=== PATIENT | male | born 1970 | race African-American/Black ===

== ENCOUNTER 2017-03-19 16:38 | Inpatient (IN) | payer BC ==
[~2017-03-19] VITALS: Ht 193 cm; Wt 90.4 kg
[2017-03-19] VITALS (19 sets, daily range): BP systolic 115–152; BP diastolic 68–112
[2017-03-19] MEDS ORDERED: SODIUM CHLORIDE 0.9% 1000ML 1,000 ML IV STA (17:02)
[2017-03-19 17:26] LABS: BASOPHILS % 0.2 % (0.0-1.0); EOSINOPHILS # (AUTO) 0.1 (0.0-0.4); EOSINOPHILS % 0.3 % (0.0-6.0); HEMATOCRIT 24.4 % (38.2-49.6); HEMOGLOBIN 8.2 g/dL (14.0-18.0); LYMPHOCYTES % 18.3 % (18.0-39.1); MEAN CORPUSCULAR HEMOGLOBIN 27.2 pg (28-32); MEAN CORPUSCULAR HGB CONC 33.6 g/dL (31-35); MEAN CORPUSCULAR VOLUME 81.1 fL (81-99); MONOCYTES % 6.1 % (4.4-11.3); NEUTROPHILS # (AUTO) 12.3 (2.1-6.9); NEUTROPHILS % 74.6 % (38.7-80.0); PLATELET COUNT 648 x10e3/uL (140-360); RED BLOOD COUNT 3.01 x10e6/uL (4.3-5.7)
[2017-03-19 17:41] LABS: ALANINE AMINOTRANSFERASE 50 IU/L (0-55); ALBUMIN 2.3 g/dL (3.5-5.0); ALBUMIN/GLOBULIN RATIO 0.3 (0.8-2.0); ALKALINE PHOSPHATASE 215 IU/L (40-150); ANION GAP 12.3 mmol/L (8-16); BLOOD UREA NITROGEN 14 mg/dL (7-26); BUN/CREATININE RATIO 16 (6-25); CALCIUM 8.7 mg/dL (8.4-10.2); CARBON DIOXIDE 27 mmol/L (22-29); CHLORIDE 98 mmol/L (98-107); CREATININE, SERUM 0.85 mg/dL (0.72-1.25); EST GLOMERULAR FILTRATION RATE > 60 ML/MIN (60-); GLUCOSE 397 mg/dL (74-118); POTASSIUM 4.3 mmol/L (3.5-5.1); SODIUM 133 mmol/L (136-145)
[2017-03-19] MEDS ORDERED: SODIUM CHLORIDE 0.9% 1000ML 1,000 ML IV SCH (18:00)
[2017-03-19] MEDS: CLINDAMYCIN 300MG 50 ML IV SCH (18:06)
[2017-03-19] MEDS ORDERED: INSULIN REGULAR, HUMAN 100 UNITS in SODIUM CHLORIDE 0.45% 100 ML IV PRN ×2 (18:30)
[2017-03-19] MEDS ORDERED: SODIUM CHLORIDE 0.9% 250ML 250 ML ONE (19:36)
[2017-03-19] MEDS: VANCOMYCIN 1GM/NS 250 ML 250 ML IV SCH (20:58)
[2017-03-19] MEDS: SODIUM CHLORIDE 0.9% 1000ML 1,000 ML IV SCH ×2 (20:58→23:42)
[2017-03-19] MEDS: PIPERACILLIN/TAZO 4.5 GM 100 ML IV SCH (22:46)
[2017-03-19] MEDS ORDERED: METOPROLOL TARTRATE INJ 1 MG/ML VIAL IV PRN (23:00)
[2017-03-19] MEDS: METOPROLOL TARTRATE 50 MG TAB PO SCH (23:13)
[2017-03-20] VITALS (94 sets, daily range): BP systolic 88–140; BP diastolic 53–93
[2017-03-20] MEDS ORDERED: ACETAMINOPHEN 1000 MG/100 ML IV SCH
[2017-03-20] MEDS ORDERED: CLINDAMYCIN 300MG 50 ML IV SCH
[2017-03-20] MEDS: ACETAMINOPHEN 1000 MG/100 ML IV PRN ×2 (00:09→22:39)
[2017-03-20] MEDS: CLINDAMYCIN 300MG 50 ML IV SCH ×5 (00:22→23:26)
[2017-03-20] MEDS: PIPERACILLIN/TAZO 4.5 GM 100 ML IV SCH ×4 (05:58→23:48)
--- NOTE | 2017-03-20 07:56 | Progress Note ---
DATE: I was notified by the patient's nurse in the ICU this morning that the patient does not wish any further care by me. He is refusing my recommendations for a left below knee amputation. He has expressed a desire to be evaluated and treated by another surgeon. At this point, I will honor the patient's request that I be no longer the surgeon on his case. Will sign off the case immediately. Job#: [id number] LOCO
[2017-03-20] MEDS: FAMOTIDINE 20 MG TAB PO SCH ×2 (08:45→18:52)
[2017-03-20] MEDS: METOPROLOL TARTRATE 50 MG TAB PO SCH ×2 (08:45→20:06)
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
[2017-03-20 10:59] LABS: BASOPHILS % 0.2 % (0.0-1.0); EOSINOPHILS % 0.1 % (0.0-6.0); LYMPHOCYTES # (AUTO) 2.8 (1.0-3.2); LYMPHOCYTES % 16.9 % (18.0-39.1); MEAN CORPUSCULAR HEMOGLOBIN 27.1 pg (28-32); MEAN CORPUSCULAR HGB CONC 33.8 g/dL (31-35); MEAN CORPUSCULAR VOLUME 80.1 fL (81-99); MONOCYTES # (AUTO) 1.1 (0.2-0.8); MONOCYTES % 6.7 % (4.4-11.3); NEUTROPHILS # (AUTO) 12.4 (2.1-6.9); NEUTROPHILS % 75.6 % (38.7-80.0); PLATELET COUNT 526 x10e3/uL (140-360); RED BLOOD COUNT 2.77 x10e6/uL (4.3-5.7); RED CELL DISTRIBUTION WIDTH 13.9 % (11.7-14.4)
[2017-03-20 11:04] LABS: HEMOGLOBIN 7.5 g/dL (14.0-18.0)
[2017-03-20 11:05] LABS: HEMATOCRIT 22.2 % (38.2-49.6)
[2017-03-20 11:25] LABS: ALANINE AMINOTRANSFERASE 34 IU/L (0-55); ALBUMIN 1.9 g/dL (3.5-5.0); ALBUMIN/GLOBULIN RATIO 0.3 (0.8-2.0); ALKALINE PHOSPHATASE 176 IU/L (40-150); ANION GAP 10.2 mmol/L (8-16); BLOOD UREA NITROGEN 8 mg/dL (7-26); BUN/CREATININE RATIO 12 (6-25); CALCIUM 8.2 mg/dL (8.4-10.2); CARBON DIOXIDE 26 mmol/L (22-29); CHLORIDE 103 mmol/L (98-107); CHOL/HDL RATIO 5.2 (3.9-4.7); CHOLESTEROL 115 MD/DL (0-199); CREATININE, SERUM 0.67 mg/dL (0.72-1.25); EST GLOMERULAR FILTRATION RATE > 60 ML/MIN (60-); GLUCOSE 179 mg/dL (74-118); HDL CHOLESTEROL 22 MG/DL (40-60); LDL CHOLESTEROL 81 MG/DL (60-130); POTASSIUM 4.2 mmol/L (3.5-5.1); SODIUM 135 mmol/L (136-145); TRIGLYCERIDES 61 MG/DL (0-149)
[2017-03-20] MEDS: SODIUM CHLORIDE 0.9% 1000ML 1,000 ML IV SCH ×3 (14:03→23:51)
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
[2017-03-20] MEDS ORDERED: ENOXAPARIN SOD INJ 40 MG/0.4 ML SYR SC SCH (17:00)
[2017-03-20] MEDS ORDERED: SODIUM CHLORIDE 0.9% 250ML 250 ML IV ONE (20:15)
[2017-03-20] MEDS: VANCOMYCIN 1GM/NS 250 ML 250 ML IV SCH (21:10)
[2017-03-21] VITALS (66 sets, daily range): BP systolic 92–146; BP diastolic 56–102
--- NOTE | 2017-03-21 04:46 | Consultation ---
DATE OF CONSULTATION: March 20, 2017 CHIEF COMPLAINT: Left foot infection. HISTORY OF PRESENT ILLNESS: The patient is a 46-year-old male with a history of uncontrolled diabetes presenting with a swollen red foot with drainage and maggots noted in the wound. The patient stated this has started for several months, which has progressively worsened. He admits to some increasing pain and subjective fever and chills. PAST MEDICAL HISTORY: Significant for diabetes, hypertension and hyperlipidemia. SURGICAL HISTORY: Positive for foot surgery years ago. ALLERGIES: THE PATIENT HAS NO DRUG ALLERGIES. SOCIAL HABITS: He denies smoking or alcohol abuse. REVIEW OF SYSTEMS: He has no chest pain or shortness of breath. PHYSICAL EXAMINATION VITALS: Heart rate of 110, temperature 98, blood pressure 120/86. GENERAL: He is awake, alert and in no apparent distress. HEENT: Sclerae nonicteric. NECK: Supple. LUNGS: Clear. HEART: Regular rate and rhythm. No murmur. ABDOMEN: Soft and nontender. EXTREMITIES: Revealed a very edematous and erythematous foot with full-thickness skin necrosis on the dorsum, as well as on the plantar aspect of the foot. There is evidence of maggots in the wound bed. The soft tissue infection and deep abscess formation extends to the proximal aspect of the foot. The foot is warm. Pedal pulse is barely palpable. The process seems to be distal to the ankle level. His white cell count is 16,000, hemoglobin of 7.5 and platelet count is 526,000. Hemoglobin A1C is 8.8. ASSESSMENT: Left Charcot foot with soft tissue infection with possible fasciitis and osteomyelitis. I do not think the foot is salvageable. I concur with previous surgical opinions of below-knee amputation is the best option for this patient for control of sepsis. PLAN: We discussed with patient regarding below-knee amputation, anesthesia and attendant risks discussed with him. Job#: [id number] LOCO
[2017-03-21] MEDS: CLINDAMYCIN 300MG 50 ML IV SCH ×3 (06:01→17:43)
[2017-03-21] MEDS: PIPERACILLIN/TAZO 4.5 GM 100 ML IV SCH ×4 (06:01→23:53)
[2017-03-21] MEDS: FAMOTIDINE 20 MG TAB PO SCH ×2 (07:30→16:30)
--- NOTE | 2017-03-21 08:11 | Progress Note ---
DATE: March 21, 2017 TIME: 6:30 a.m. OVERNIGHT: Patient decided to proceed with surgery. REVIEW OF SYSTEMS: Denies any dizziness, chest pain. PHYSICAL EXAMINATION: VITAL SIGNS: Reviewed. GENERAL APPEARANCE: Tired-appearing man resting in bed. HEENT: Anicteric. CARDIOVASCULAR: Normal S1 and S2. LUNGS: Moderate breath sounds. ABDOMEN: Soft, nontender, nondistended. EXTREMITIES: No edema or calf tenderness on the right leg. On the left foot, he has trace edema. He has erythema and edema of the ankle region extending to the toes. He has necrotic-appearing malodorous large ulcer spreading from the plantar surface to the dorsal surface of the foot. He has pus drainage, extensive lesions. SKIN: Dry. PSYCHIATRIC: Flat affect. NEUROLOGICAL: Alert and oriented x3. Moving all extremities. LABS: Reviewed. MEDICATIONS: Reviewed. ASSESSMENT: A 46-year-old man: 1. Severe sepsis. 2. Necrotic left foot/diabetic foot ulcer. 3. Normocytic anemia, moderate. 4. Uncontrolled diabetes/hyperglycemia. Hemoglobin A1c 8.8, LDL 81, and triglycerides 61. 5. Left foot pain. 6. Hypertension. 7. Hyperlipidemia. PLAN: 1. Surgery planned for today for amputation. 2. Continue broad-spectrum antibiotics vancomycin, Zosyn, and clindamycin. 3. Continue diabetes management per endocrinology. 4. Blood pressure controlled with metoprolol. 5. Continue IV fluids. 6. Will need to consult physiatric, Dr. Walsh after surgery. Critical care time more than 35 minutes. Job#: [id number]
[2017-03-21 09:11] LABS: BASOPHILS % 0.2 % (0.0-1.0); EOSINOPHILS # (AUTO) 0.1 (0.0-0.4); EOSINOPHILS % 0.5 % (0.0-6.0); HEMATOCRIT 23.8 % (38.2-49.6); HEMOGLOBIN 8.1 g/dL (14.0-18.0); LYMPHOCYTES # (AUTO) 2.9 (1.0-3.2); LYMPHOCYTES % 20.2 % (18.0-39.1); MEAN CORPUSCULAR HEMOGLOBIN 27.6 pg (28-32); MEAN CORPUSCULAR VOLUME 81.2 fL (81-99); MONOCYTES # (AUTO) 1.2 (0.2-0.8); MONOCYTES % 8.2 % (4.4-11.3); NEUTROPHILS # (AUTO) 9.9 (2.1-6.9); NEUTROPHILS % 70.5 % (38.7-80.0); PLATELET COUNT 551 x10e3/uL (140-360); RED BLOOD COUNT 2.93 x10e6/uL (4.3-5.7); RED CELL DISTRIBUTION WIDTH 14.2 % (11.7-14.4)
[2017-03-21 09:31] LABS: BLOOD UREA NITROGEN 9 mg/dL (7-26); BUN/CREATININE RATIO 13 (6-25); CALCIUM 8.2 mg/dL (8.4-10.2); CARBON DIOXIDE 27 mmol/L (22-29); CHLORIDE 106 mmol/L (98-107); CREATININE, SERUM 0.69 mg/dL (0.72-1.25); EST GLOMERULAR FILTRATION RATE > 60 ML/MIN (60-); GLUCOSE 80 mg/dL (74-118); SODIUM 138 mmol/L (136-145)
[2017-03-21] MEDS: METOPROLOL TARTRATE 50 MG TAB PO SCH ×2 (09:47→20:09)
[2017-03-21] MEDS: SODIUM CHLORIDE 0.9% 1000ML 1,000 ML IV SCH ×2 (10:05→19:44)
[2017-03-21] MEDS ORDERED: SODIUM CHLORIDE 0.9% 250ML 250 ML ONE (10:55)
[2017-03-21] MEDS ORDERED: FENTANYL CITRATE/PF 100MCG/2 ML INJ ONE ×2 (14:04→16:22)
[2017-03-21] MEDS ORDERED: MIDAZOLAM HCL 2 MG/2 ML VIAL ONE (14:04)
[2017-03-21] MEDS ORDERED: MORPHINE SULFATE 5 MG/ML VIAL IV PRN (16:15)
[2017-03-21] MEDS ORDERED: HYDROCODONE/APAP 7.5MG-325MG 1 EA TAB PO PRN (16:15)
[2017-03-21] MEDS: INSULIN LISPRO 100 UNIT/1 ML 3ML VIAL SQ SCH ×2 (16:30→19:44)
[2017-03-21] MEDS ORDERED: HYDROMORPHONE 1MG/1ML INJ ONE (16:51)
[2017-03-21] MEDS: VANCOMYCIN 1GM/NS 250 ML 250 ML IV SCH (20:09)
[2017-03-21] MEDS ORDERED: HYDROMORPHONE 2MG/ML INJ IV PRN (21:30)
[2017-03-21] MEDS: INSULIN DETEMIR 100 UNIT/ML PEN SQ SCH (21:58)
[2017-03-21] MEDS: HYDROMORPHONE 1MG/1ML INJ IV PRN (23:53)
[2017-03-22] VITALS (95 sets, daily range): BP systolic 98–161; BP diastolic 66–106
[2017-03-22] MEDS: SODIUM CHLORIDE 0.9% 1000ML 1,000 ML IV SCH ×3 (00:58→18:11)
[2017-03-22] MEDS: CLINDAMYCIN 300MG 50 ML IV SCH ×5 (00:58→23:03)
[2017-03-22] MEDS: PIPERACILLIN/TAZO 4.5 GM 100 ML IV SCH ×4 (05:20→23:32)
[2017-03-22] MEDS: HYDROMORPHONE 1MG/1ML INJ IV PRN ×5 (05:25→20:56)
[2017-03-22 06:03] LABS: BASOPHILS % 0.2 % (0.0-1.0); EOSINOPHILS % 0.1 % (0.0-6.0); HEMATOCRIT 24.3 % (38.2-49.6); HEMOGLOBIN 8.2 g/dL (14.0-18.0); LYMPHOCYTES # (AUTO) 2.5 (1.0-3.2); LYMPHOCYTES % 20.2 % (18.0-39.1); MEAN CORPUSCULAR HEMOGLOBIN 27.5 pg (28-32); MEAN CORPUSCULAR HGB CONC 33.7 g/dL (31-35); MEAN CORPUSCULAR VOLUME 81.5 fL (81-99); MONOCYTES # (AUTO) 0.9 (0.2-0.8); MONOCYTES % 7.7 % (4.4-11.3); NEUTROPHILS # (AUTO) 8.7 (2.1-6.9); NEUTROPHILS % 71.1 % (38.7-80.0); PLATELET COUNT 532 x10e3/uL (140-360); RED BLOOD COUNT 2.98 x10e6/uL (4.3-5.7); RED CELL DISTRIBUTION WIDTH 14.2 % (11.7-14.4)
[2017-03-22 06:27] LABS: BLOOD UREA NITROGEN 8 mg/dL (7-26); BUN/CREATININE RATIO 13 (6-25); CALCIUM 7.8 mg/dL (8.4-10.2); CARBON DIOXIDE 25 mmol/L (22-29); CHLORIDE 106 mmol/L (98-107); CREATININE, SERUM 0.63 mg/dL (0.72-1.25); EST GLOMERULAR FILTRATION RATE > 60 ML/MIN (60-); GLUCOSE 101 mg/dL (74-118); SODIUM 136 mmol/L (136-145)
[2017-03-22] MEDS: FAMOTIDINE 20 MG TAB PO SCH ×2 (07:30→16:51)
[2017-03-22] MEDS: INSULIN LISPRO 100 UNIT/1 ML 3ML VIAL SQ SCH ×4 (07:30→20:11)
[2017-03-22] MEDS: METOPROLOL TARTRATE 50 MG TAB PO SCH ×2 (09:00→20:09)
--- NOTE | 2017-03-22 12:35 | Operative Report ---
DATE OF PROCEDURE: March 21, 2017 PREOPERATIVE DIAGNOSIS: Ischemic diabetic left foot. POSTOPERATIVE DIAGNOSIS: Ischemic diabetic left foot. OPERATIVE PROCEDURE: Left below knee amputation. ANESTHESIA: General endotracheal. INDICATIONS: The patient is a 46-year-old male with a history of diabetic foot infection with abscess formation and sepsis. Patient has consented for left below knee amputation due to the foot not being salvageable and risks of worsening sepsis. The attendant risks discussed. DESCRIPTION OF PROCEDURE: The patient was brought to the OR intubated. The left foot is covered with sterile glove, and prepped from the foot to the thigh area with alcohol and draped in a sterile fashion. One handbreadth below the left tibial tuberosity, we then marked a semicircular incision for the initial incisions on the anterior tibia. Dissection was carried straight down to the tibial bone, which was then delineated with sharp dissection on both sides. The anterior tibial muscle is divided with cautery. The anterior tibial neuro-vasculature is controlled with suture ligature with 2-0 silk stitches. The tibial bone is then exposed approximately for 2-3 cm using the periosteal elevator and power saw used to divide the tibial bone. The anterior aspect of the tibial stump was rasped to provide a smooth contour. Laterally, the muscle overlying the tibia was also divided with the cautery. Neurovascular structure singly ligated with suture ligature of 2-0 Vicryl. The fibula was then divided 2 cm proximal to the line of division for the tibia. We then proceeded to follow the plane of the undersurface of the tibia as we created a posterior flap, which is approximally 20 cm long to generate enough posterior flap for coverage of the stump. Dissection was carried through the posterior tibial muscle for approximately 4 cm using cautery. The posterior tibial vasculature and sciatic nerve is singly and individually ligated with 2-0 silk suture ligature. The gastrocnemius and soleus muscle was also likely divided to the skin edge. The specimen was removed. Bleeding points controlled with cautery or suture ligature. We then proceeded to fashion the posterior flap, and brought it over to cover the tibial stump using 0 Vicryl suture interrupted for the fascia. Skin was closed with david. A 15-[place] Med[place] drain has been placed in the muscular tissue adjacent to the tibia and taken out medially. Dressing applied. The patient received a knee immobilizer. He was then extubated and transported to the recovery room in guarded condition. Estimated blood loss 100 mL. Job#: [id number] RI
--- NOTE | 2017-03-22 12:36 | Progress Note ---
DATE: March 22, 2017 TIME: 7:50 a.m. OVERNIGHT: He underwent left BKA. Pain is about 5/10. REVIEW OF SYSTEMS: Denies any dizziness. PHYSICAL EXAMINATION: VITAL SIGNS: Reviewed. GENERAL APPEARANCE: Tired-appearing man resting in bed. HEENT: Anicteric. CARDIOVASCULAR: Normal S1 and S2. LUNGS: Moderate breath sounds. ABDOMEN: Soft, nontender, nondistended. EXTREMITIES: He has left BKA with dry dressing in place with AUTUMN drain in place. Right leg is okay. SKIN: Dry. PSYCHIATRIC: Flat affect. LABS: Reviewed. MEDICATIONS: Reviewed. ASSESSMENT: A 46-year-old man: 1. Severe sepsis. 2. Necrotic left foot/diabetic foot ulcer. 3. Normocytic anemia, moderate. 4. Uncontrolled diabetes/hyperglycemia. Hemoglobin A1c 8.8, LDL 81, and triglycerides 61. 5. Left foot pain. 6. Hypertension. 7. Hyperlipidemia. PLAN: 1. Status post left BKA. 2. Consult Dr. Walsh of rehab services to evaluate patient. 3. Continue broad-spectrum antibiotics. 4. Hemoglobin is 8.2 this morning, which is stable. 5. Leukocytosis. Continues to improve. 6. Glucose is controlled, 103 to 184. 7. All cultures remain negative. Critical care time more than 35 minutes. Job#: [id number]
[2017-03-22] MEDS: VANCOMYCIN 1GM/NS 250 ML 250 ML IV SCH (20:08)
[2017-03-22] MEDS: INSULIN DETEMIR 100 UNIT/ML PEN SQ SCH (20:11)
[2017-03-23] VITALS (35 sets, daily range): BP systolic 102–158; BP diastolic 62–111
[2017-03-23] MEDS: HYDROMORPHONE 1MG/1ML INJ IV PRN ×6 (01:02→22:30)
[2017-03-23] MEDS: SODIUM CHLORIDE 0.9% 1000ML 1,000 ML IV SCH ×3 (02:13→20:34)
[2017-03-23] MEDS: CLINDAMYCIN 300MG 50 ML IV SCH ×4 (05:21→23:19)
[2017-03-23] MEDS: PIPERACILLIN/TAZO 4.5 GM 100 ML IV SCH ×3 (06:09→17:01)
[2017-03-23] MEDS: FAMOTIDINE 20 MG TAB PO SCH ×2 (07:43→16:54)
[2017-03-23] MEDS: INSULIN LISPRO 100 UNIT/1 ML 3ML VIAL SQ SCH ×4 (07:45→21:02)
[2017-03-23] MEDS: METOPROLOL TARTRATE 50 MG TAB PO SCH ×2 (08:25→20:35)
[2017-03-23 13:04] LABS: HEMATOCRIT 25.2 % (38.2-49.6); HEMOGLOBIN 8.4 g/dL (14.0-18.0)
--- NOTE | 2017-03-23 15:07 | Progress Note ---
DATE: March 23, 2017 TIME: 11:50 a.m. OVERNIGHT: No events. Pain is controlled, about 2/10. REVIEW OF SYSTEMS: Denies any dizziness or chest pain. VITAL SIGNS: Reviewed. PHYSICAL EXAMINATION GENERAL: Tired-appearing man resting in bed. HEENT: Anicteric. CARDIOVASCULAR: Normal S1 and S2. LUNGS: Moderate breath sounds. ABDOMEN: Soft, nontender, nondistended. EXTREMITIES: Left leg has BKA with dressing in place with AUTUMN drain. SKIN: Dry. PSYCHIATRIC: Normal affect. LABS: Reviewed. MEDICATIONS: Reviewed. ASSESSMENT: This is a 46-year-old man. 1. Severe sepsis. 2. Necrotic left foot/diabetic foot ulcer, status post below-knee amputation. 3. Normocytic anemia, moderate. 4. Uncontrolled diabetes/hyperglycemia. Glycosylated hemoglobin 8.8, low-density lipoprotein 81, and triglycerides 61. 5. Left foot pain. 6. Hypertension. 7. Hyperlipidemia. PLAN 1. Continue physical therapy. Rehab services consulted. 2. Recheck CBC now. 3. All cultures remain negative. 4. Transfer to the floor. Job#: [id number]
[2017-03-23] MEDS: VANCOMYCIN 1GM/NS 250 ML 250 ML IV SCH (20:35)
[2017-03-23] MEDS: INSULIN DETEMIR 100 UNIT/ML PEN SQ SCH (21:02)
[2017-03-24] VITALS: BP 124/61
[2017-03-24] MEDS: SODIUM CHLORIDE 0.9% 1000ML 1,000 ML IV SCH ×3 (02:30→18:43)
[2017-03-24 04:00] VITALS: BP 129/82
[2017-03-24] MEDS: HYDROMORPHONE 1MG/1ML INJ IV PRN ×5 (04:21→23:34)
[2017-03-24] MEDS: PIPERACILLIN/TAZO 4.5 GM 100 ML IV SCH ×5 (05:17→23:31)
[2017-03-24] MEDS: CLINDAMYCIN 300MG 50 ML IV SCH ×3 (05:52→18:43)
[2017-03-24 07:09] VITALS: BP 142/84
[2017-03-24] MEDS: METOPROLOL TARTRATE 50 MG TAB PO SCH ×2 (08:26→20:34)
[2017-03-24] MEDS: INSULIN LISPRO 100 UNIT/1 ML 3ML VIAL SQ SCH ×4 (08:26→20:35)
[2017-03-24] MEDS: FAMOTIDINE 20 MG TAB PO SCH ×2 (08:26→16:24)
--- NOTE | 2017-03-24 08:48 | Consultation ---
DATE OF CONSULTATION: March 23, 2017 REFERRING PHYSICIAN: Dr. Konstantin Vasquez. I would like to thank Dr. Vasquez for asking me to see Mr. York in consultation. REASONS FOR CONSULTATION: Left below-knee amputation secondary to gangrene. HISTORY: Mr. York is a 46-year-old male with a history of uncontrolled diabetes, who came into the hospital with a red, swollen foot with drainage and maggots noted in the wound. The patient says that he had it for several months. It had gotten worse. It was felt that the leg was not salvageable, so he underwent a below-knee amputation on the left. I am being asked to evaluate for rehab needs. PAST MEDICAL HISTORY: Diabetes, hypertension, hyperlipidemia. SURGERIES: Positive for foot surgery. ALLERGIES: NO KNOWN DRUG ALLERGIES. HABITS: Nonsmoker, nondrinker. SOCIAL HISTORY: He lives by himself in a 1-story home. 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 FAMILY HISTORY: Denies. CONSTITUTIONAL REVIEW OF SYSTEMS: Essentially negative except for the above findings. The patient is denying any numbness or tingling in the legs. He says he has had diabetes for the past 10 years. LABS: White cell count 12.2, hemoglobin 8.4, hematocrit 25.2, platelets 532. Therapies have not been initiated just yet. PHYSICAL EXAMINATION VITALS: Temperature 98.7, respirations 16, heart rate 86, blood pressure 131/82. GENERAL: The patient is awake, alert, pleasant, in no apparent distress at this time. HEENT: Eyes: Gaze is conjugate. Oral: Tongue is midline. NECK: Supple. HEART: Regular. LUNGS: Clear throughout. ABDOMEN: Nontender and nondistended. EXTREMITIES: Left leg: He has a large dressing and knee immobilizer on. There is a AUTUMN drain in the left stump. He has full range of motion of the arms as well as his right leg. He actually flexes his left hip pretty well. He does have phantom sensation. Manual muscle testing showed flexion and extension 4/5 strength bilaterally. Infant Room Teacher is 5/5 strength bilaterally. The right lower extremity demonstrates pretty much 4/5 to 4+/5 strength throughout. In the left lower extremity, hip flexion was 4-/5 strength. His knee is in the immobilizer. IMPRESSION 1. Left below-knee amputation secondary to gangrenous foot. 2. Patient with phantom sensation. 3. Diabetes. 4. Hypertension. 5. Hyperlipidemia. PLAN: I spoke with the patient at length. He will make an excellent inpatient rehab candidate. He would benefit from a multidisciplinary inpatient rehab program consisting of PT, OT, and nursing working in a coordinated fashion to optimize functional level. He definitely wants to go back to work. In order to do so, his leg has to be healed so he can be evaluated for a prosthesis. I discussed with the patient about plan of care. Will check with the insurance. Thank you, once again, for allowing me to participate in the care of this pleasant patient. Job#: [id number]
[2017-03-24 11:25] VITALS: BP 109/75
--- NOTE | 2017-03-24 11:28 | Progress Note ---
DATE: March 24, 2017 TIME: 8 a.m. OVERNIGHT: No events. Pain is well controlled. REVIEW OF SYSTEMS: Denies any dizziness or chest pain. VITAL SIGNS: Reviewed. PHYSICAL EXAMINATION GENERAL: Tired-appearing man resting in bed. HEENT: Anicteric. CARDIOVASCULAR: Normal S1 and S2. LUNGS: Moderate breath sounds. ABDOMEN: Soft, nontender, nondistended. EXTREMITIES: Left BKA with dressing in place and AUTUMN drain. SKIN: Dry. PSYCHIATRIC: Normal affect. LABS: Reviewed. MEDICATIONS: Reviewed. ASSESSMENT: This is a 46-year-old man. 1. Severe sepsis. 2. Necrotic left foot/diabetic foot ulcer, status post below-knee amputation. 3. Normocytic anemia, moderate. 4. Uncontrolled diabetes/hyperglycemia. Glycosylated hemoglobin 8.8, low-density lipoprotein 81, and triglycerides 61. 5. Left foot pain. 6. Hypertension. 7. Hyperlipidemia. PLAN 1. Continue physical therapy. 2. Continue local wound care. 3. May benefit from rehab services. 4. All cultures remain negative. 5. Hemoglobin is remaining stable at 8.4 yesterday. 6. Obtain labs tomorrow morning. 7. Glucose is somewhat controlled. Titrate insulin regimen up. Ensure the patient is on a diabetic diet. 8. Discharge planning. Job#: [id number]
--- NOTE | 2017-03-24 12:18 | Progress Note ---
DATE: March 24, 2017 Mr. York was seen on rounds today. He had a pretty good night last night. No complaints at this time, except for the pain. OBJECTIVE VITALS: Temperature 97.9, respirations 18, heart rate 95, blood pressure 129/82. GENERAL: Overall, he is doing fairly well. HEART: Regular. LUNGS: Clear. ABDOMEN: Nontender. Nondistended. EXTREMITIES: Right leg looks good. No increased swelling. Left leg in immobilizer. PLAN 1. Continue to work on mobility. 2. Pain medicines 1/2 hour before therapy. 3. Work on transfer to inpatient rehab, given his new BKA. Job#: [id number]
[2017-03-24 15:30] VITALS: BP 129/78
[2017-03-24] MEDS: VANCOMYCIN 1GM/NS 250 ML 250 ML IV SCH (19:53)
[2017-03-24 20:00] VITALS: BP 125/76
[2017-03-24] MEDS ORDERED: INSULIN DETEMIR 100 UNIT/ML PEN SQ SCH ×2 (21:00)
[2017-03-25] VITALS: BP 118/65
[2017-03-25] MEDS: CLINDAMYCIN 300MG 50 ML IV SCH ×4 (00:11→18:43)
[2017-03-25] MEDS: SODIUM CHLORIDE 0.9% 1000ML 1,000 ML IV SCH ×3 (02:51→16:51)
[2017-03-25 04:00] VITALS: BP 125/75
[2017-03-25] MEDS: HYDROMORPHONE 1MG/1ML INJ IV PRN ×4 (05:18→23:25)
[2017-03-25] MEDS: PIPERACILLIN/TAZO 4.5 GM 100 ML IV SCH ×3 (05:25→23:10)
--- NOTE | 2017-03-25 06:59 | Progress Note ---
DATE: March 25, 2017 TIME: 6 a.m. OVERNIGHT: Pain is about 5/10. REVIEW OF SYSTEMS: Denies any dizziness. PHYSICAL EXAMINATION VITAL SIGNS: Reviewed. GENERAL: A tired-appearing man resting in bed. HEENT: Anicteric. CARDIOVASCULAR: Normal S1 and S2. LUNGS: Moderate breath sounds. ABDOMEN: Soft, nontender and nondistended. EXTREMITIES: Left BKA with dressing in place, clean and dry. SKIN: Dry. PSYCHIATRIC: Normal affect. LABS: Reviewed. MEDICATIONS: Reviewed. ASSESSMENT: A 46-year-old man with: 1. Severe sepsis. 2. Necrotic left foot/diabetic foot ulcer: Status post below knee amputation. 3. Normocytic anemia, moderate. 4. Uncontrolled diabetes/hyperglycemia: Hemoglobin A1c 8.8, LDL 81 and triglycerides 61. 5. Left foot pain. 6. Hypertension. 7. Hyperlipidemia. PLAN 1. Continue physical therapy. 2. Continue local wound care. 3. Continue glucose control. 4. Check H and H. 5. Titrate Levemir up to 16 units. 6. Continue IV clindamycin, IV Zosyn and IV vancomycin. 7. Rehab evaluation ongoing. Follow up with case management. Job#: [id number] LOCO
[2017-03-25 07:16] LABS: BASOPHILS % 0.2 % (0.0-1.0); EOSINOPHILS # (AUTO) 0.1 (0.0-0.4); EOSINOPHILS % 1.4 % (0.0-6.0); HEMATOCRIT 22.8 % (38.2-49.6); HEMOGLOBIN 7.7 g/dL (14.0-18.0); LYMPHOCYTES # (AUTO) 3.4 (1.0-3.2); LYMPHOCYTES % 35.6 % (18.0-39.1); MEAN CORPUSCULAR HEMOGLOBIN 27.9 pg (28-32); MEAN CORPUSCULAR HGB CONC 33.8 g/dL (31-35); MEAN CORPUSCULAR VOLUME 82.6 fL (81-99); MONOCYTES % 10.3 % (4.4-11.3); NEUTROPHILS % 51.9 % (38.7-80.0); PLATELET COUNT 614 x10e3/uL (140-360); RED BLOOD COUNT 2.76 x10e6/uL (4.3-5.7); RED CELL DISTRIBUTION WIDTH 14.7 % (11.7-14.4)
[2017-03-25 07:44] LABS: ANION GAP 9.8 mmol/L (8-16); BLOOD UREA NITROGEN < 5 mg/dL (7-26); CALCIUM 8.4 mg/dL (8.4-10.2); CARBON DIOXIDE 29 mmol/L (22-29); CHLORIDE 102 mmol/L (98-107); CREATININE, SERUM 0.66 mg/dL (0.72-1.25); EST GLOMERULAR FILTRATION RATE > 60 ML/MIN (60-); GLUCOSE 158 mg/dL (74-118); MAGNESIUM 1.2 MG/DL (1.3-2.1); POTASSIUM 3.8 mmol/L (3.5-5.1); SODIUM 137 mmol/L (136-145)
[2017-03-25 07:50] LABS: BUN/CREATININE RATIO 8 (6-25)
[2017-03-25 08:00] VITALS: BP 137/83
[2017-03-25] MEDS: INSULIN LISPRO 100 UNIT/1 ML 3ML VIAL SQ SCH ×7 (08:30→21:00)
[2017-03-25] MEDS: FAMOTIDINE 20 MG TAB PO SCH ×2 (08:30→16:45)
[2017-03-25] MEDS: METOPROLOL TARTRATE 50 MG TAB PO SCH ×2 (09:00→21:31)
[2017-03-25 12:00] VITALS: BP 131/84
[2017-03-25] MEDS ORDERED: MAGNESIUM SULFATE 2GM/50ML 50 ML IV ONE (12:30)
[2017-03-25 16:00] VITALS: BP 119/80
[2017-03-25 20:00] VITALS: BP 123/78
[2017-03-25] MEDS: INSULIN DETEMIR 100 UNIT/ML PEN SQ SCH (21:27)
[2017-03-25] MEDS: VANCOMYCIN 1GM/NS 250 ML 250 ML IV SCH (21:50)
[2017-03-26] VITALS: BP 127/74
[2017-03-26] MEDS: CLINDAMYCIN 300MG 50 ML IV SCH ×4 (00:39→17:48)
[2017-03-26] MEDS: PIPERACILLIN/TAZO 4.5 GM 100 ML IV SCH ×4 (02:21→23:25)
[2017-03-26] MEDS: SODIUM CHLORIDE 0.9% 1000ML 1,000 ML IV SCH ×3 (02:21→17:48)
[2017-03-26] MEDS: HYDROMORPHONE 1MG/1ML INJ IV PRN ×4 (03:23→21:54)
[2017-03-26 04:00] VITALS: BP 120/76
[2017-03-26 07:11] LABS: BASOPHILS % 0.3 % (0.0-1.0); EOSINOPHILS # (AUTO) 0.1 (0.0-0.4); EOSINOPHILS % 1.2 % (0.0-6.0); HEMATOCRIT 23.9 % (38.2-49.6); LYMPHOCYTES # (AUTO) 3.4 (1.0-3.2); LYMPHOCYTES % 37.3 % (18.0-39.1); MEAN CORPUSCULAR HEMOGLOBIN 27.6 pg (28-32); MEAN CORPUSCULAR HGB CONC 33.1 g/dL (31-35); MEAN CORPUSCULAR VOLUME 83.6 fL (81-99); MONOCYTES # (AUTO) 0.8 (0.2-0.8); MONOCYTES % 9.1 % (4.4-11.3); NEUTROPHILS # (AUTO) 4.7 (2.1-6.9); NEUTROPHILS % 51.7 % (38.7-80.0); PLATELET COUNT 487 x10e3/uL (140-360); RED BLOOD COUNT 2.86 x10e6/uL (4.3-5.7); RED CELL DISTRIBUTION WIDTH 15.1 % (11.7-14.4)
[2017-03-26 07:14] LABS: HEMOGLOBIN 7.9 g/dL (14.0-18.0)
[2017-03-26] MEDS: INSULIN LISPRO 100 UNIT/1 ML 3ML VIAL SQ SCH ×7 (07:30→21:38)
[2017-03-26] MEDS: FAMOTIDINE 20 MG TAB PO SCH ×2 (07:30→16:30)
[2017-03-26 07:44] VITALS: BP 131/83
[2017-03-26] MEDS: METOPROLOL TARTRATE 50 MG TAB PO SCH ×2 (09:38→21:27)
[2017-03-26 11:42] VITALS: BP 127/77
[2017-03-26 16:03] VITALS: BP 128/73
[2017-03-26 20:00] VITALS: BP 127/78
[2017-03-26] MEDS: VANCOMYCIN 1GM/NS 250 ML 250 ML IV SCH (21:27)
[2017-03-26] MEDS: INSULIN DETEMIR 100 UNIT/ML PEN SQ SCH (21:39)
[2017-03-27] MEDS: CLINDAMYCIN 300MG 50 ML IV SCH ×5 (00:49→23:40)
[2017-03-27 02:21] VITALS: BP 138/84
[2017-03-27] MEDS: HYDROMORPHONE 1MG/1ML INJ IV PRN ×4 (02:41→23:51)
[2017-03-27] MEDS: PIPERACILLIN/TAZO 4.5 GM 100 ML IV SCH ×4 (03:03→20:45)
[2017-03-27] MEDS: SODIUM CHLORIDE 0.9% 1000ML 1,000 ML IV SCH ×3 (03:03→18:05)
[2017-03-27 05:58] VITALS: BP 121/76
[2017-03-27 07:07] VITALS: BP 133/85
[2017-03-27] MEDS ORDERED: FUROSEMIDE INJ 10 MG/ML 2 ML VIAL IV ONE (07:30)
--- NOTE | 2017-03-27 07:59 | Progress Note ---
DATE: March 26, 2017 TIME: 6:50 a.m. OVERNIGHT: No events. REVIEW OF SYSTEMS: Denies any dizziness or chest pain. PHYSICAL EXAMINATION VITAL SIGNS: Reviewed. GENERAL: A tired-appearing man resting in bed. HEENT: Anicteric. CARDIOVASCULAR: Normal S1 and S2. LUNGS: Moderate breath sounds. ABDOMEN: Soft and nontender. EXTREMITIES: Left BKA with dressing clean and dry. SKIN: Dry. PSYCHIATRIC: Normal affect. LABS: Reviewed. MEDICATIONS: Reviewed. ASSESSMENT: A 46-year-old man with: 1. Severe sepsis. 2. Necrotic left foot/diabetic foot ulcer: Status post below knee amputation. 3. Normocytic anemia: Moderate. 4. Uncontrolled diabetes/hyperglycemia: Hemoglobin A1c 8.8, LDL 81 and triglycerides 61. 5. Left foot pain. 6. Hypertension/hyperlipidemia. PLAN 1. Continue physical therapy. 2. Continue local wound care. 3. Continue glucose management. 4. Titrate medications. 5. Continue antibiotics. 6. Follow up rehab evaluation. Job#: [id number] NM
--- NOTE | 2017-03-27 08:03 | Progress Note ---
DATE: March 27, 2017 TIME: 7:15 a.m. OVERNIGHT: No events. REVIEW OF SYSTEMS: Denies any dizziness. PHYSICAL EXAMINATION VITAL SIGNS: Reviewed. GENERAL: A tired-appearing man resting in bed. HEENT: Anicteric. CARDIOVASCULAR: Normal S1 and S2. LUNGS: Moderate breath sounds. ABDOMEN: Soft and nontender. EXTREMITIES: Right leg with no edema. On the left leg, he has a left BKA. He has edema of the stump site. SKIN: Dry. PSYCHIATRIC: Normal affect. LABS: Reviewed. MEDICATIONS: Reviewed. ASSESSMENT: A 46-year-old man with: 1. Severe sepsis. 2. Necrotic left foot/diabetic foot ulcer: Status post below knee amputation. 3. Normocytic anemia: Moderate. 4. Diabetes mellitus: Hemoglobin A1c 8.8, LDL 81 and triglycerides 61. 5. Left foot pain. 6. Hypertension/hyperlipidemia. 7. Left foot stump site edema. PLAN 1. Continue physical therapy. 2. Continue local wound care. 3. Continue glucose management. 4. Recheck CBC to evaluate H and H. 5. Gentle diuresis as the left foot stump site is edematous. 6. Obtain labs. 7. Obtain vancomycin trough. All cultures remain negative. Job#: [id number] LOCO
[2017-03-27 08:08] LABS: ANION GAP 8.4 mmol/L (8-16); BLOOD UREA NITROGEN 5 mg/dL (7-26); BUN/CREATININE RATIO 7 (6-25); CALCIUM 8.7 mg/dL (8.4-10.2); CARBON DIOXIDE 28 mmol/L (22-29); CHLORIDE 103 mmol/L (98-107); CREATININE, SERUM 0.68 mg/dL (0.72-1.25); EST GLOMERULAR FILTRATION RATE > 60 ML/MIN (60-); GLUCOSE 280 mg/dL (74-118); POTASSIUM 4.4 mmol/L (3.5-5.1); SODIUM 135 mmol/L (136-145)
[2017-03-27] MEDS: INSULIN LISPRO 100 UNIT/1 ML 3ML VIAL SQ SCH ×7 (08:29→21:00)
[2017-03-27] MEDS: FAMOTIDINE 20 MG TAB PO SCH ×2 (08:29→16:40)
[2017-03-27] MEDS: METOPROLOL TARTRATE 50 MG TAB PO SCH ×2 (08:30→21:45)
[2017-03-27 11:54] VITALS: BP 131/79
[2017-03-27 16:37] VITALS: BP 120/69
[2017-03-27 20:00] VITALS: BP 122/73
[2017-03-27] MEDS: INSULIN DETEMIR 100 UNIT/ML PEN SQ SCH (21:00)
[2017-03-28] VITALS (8 sets, daily range): BP systolic 98–179; BP diastolic 59–83
[2017-03-28] MEDS: SODIUM CHLORIDE 0.9% 1000ML 1,000 ML IV SCH ×3 (02:05→18:05)
[2017-03-28] MEDS: PIPERACILLIN/TAZO 4.5 GM 100 ML IV SCH ×4 (02:50→20:15)
[2017-03-28] MEDS: CLINDAMYCIN 300MG 50 ML IV SCH ×4 (05:17→23:51)
[2017-03-28] MEDS: HYDROMORPHONE 1MG/1ML INJ IV PRN ×3 (05:30→18:32)
[2017-03-28 06:54] LABS: BASOPHILS % 0.4 % (0.0-1.0); EOSINOPHILS # (AUTO) 0.1 (0.0-0.4); EOSINOPHILS % 1.3 % (0.0-6.0); HEMATOCRIT 25.8 % (38.2-49.6); HEMOGLOBIN 8.3 g/dL (14.0-18.0); LYMPHOCYTES # (AUTO) 2.9 (1.0-3.2); LYMPHOCYTES % 37.6 % (18.0-39.1); MEAN CORPUSCULAR HEMOGLOBIN 26.9 pg (28-32); MEAN CORPUSCULAR HGB CONC 32.2 g/dL (31-35); MEAN CORPUSCULAR VOLUME 83.8 fL (81-99); MONOCYTES # (AUTO) 0.7 (0.2-0.8); MONOCYTES % 9.6 % (4.4-11.3); NEUTROPHILS # (AUTO) 3.9 (2.1-6.9); NEUTROPHILS % 50.8 % (38.7-80.0); PLATELET COUNT 458 x10e3/uL (140-360); RED BLOOD COUNT 3.08 x10e6/uL (4.3-5.7); RED CELL DISTRIBUTION WIDTH 15.3 % (11.7-14.4)
--- NOTE | 2017-03-28 07:03 | Progress Note ---
DATE: March 28, 2017 TIME: 6:45 a.m. OVERNIGHT: Patient denied placement to acute rehab by insurance. REVIEW OF SYSTEMS: Denies any chest pain. PHYSICAL EXAMINATION VITAL SIGNS: Reviewed. GENERAL: A tired-appearing man resting in bed. HEENT: Anicteric. Pupils respond to light. No oral lesions. CARDIOVASCULAR: Normal S1 and S2. LUNGS: Moderate breath sounds. ABDOMEN: Soft, nontender and nondistended. EXTREMITIES: He has a left BKA. No edema or calf tenderness. SKIN: Dry. PSYCHIATRIC: Normal affect. LABS: Reviewed. MEDICATIONS: Reviewed. ASSESSMENT: A 46-year-old man with: 1. Severe sepsis. 2. Necrotic left foot/diabetic foot ulcer: Status post below knee amputation. 3. Normocytic anemia, moderate. 4. Diabetes mellitus, type 2: Hemoglobin A1c 8.8, LDL 81 and triglycerides 61. 5. Left foot pain. 6. Hypertension/hyperlipidemia. 7. Foot stump site edema. PLAN 1. Continue physical therapy. 2. Awaiting appeal with insurance company. 3. Continue glucose management. 4. Continue gentle diuresis. 5. Obtain CBC this morning to assess the H and H. 6. May need SNF placement if not approved for acute rehab. 7. Continue IV antibiotics. Job#: [id number] LOCO
[2017-03-28] MEDS: INSULIN LISPRO 100 UNIT/1 ML 3ML VIAL SQ SCH ×7 (08:23→20:07)
[2017-03-28] MEDS: FAMOTIDINE 20 MG TAB PO SCH ×2 (08:23→17:33)
[2017-03-28] MEDS: METOPROLOL TARTRATE 50 MG TAB PO SCH ×2 (08:24→20:31)
[2017-03-28] MEDS: INSULIN DETEMIR 100 UNIT/ML PEN SQ SCH (20:15)
[2017-03-29] MEDS: PIPERACILLIN/TAZO 4.5 GM 100 ML IV SCH ×4 (01:58→20:15)
[2017-03-29] MEDS: SODIUM CHLORIDE 0.9% 1000ML 1,000 ML IV SCH ×3 (02:05→18:05)
[2017-03-29 05:00] VITALS: BP 107/69
[2017-03-29] MEDS: CLINDAMYCIN 300MG 50 ML IV SCH ×2 (05:33→12:37)
[2017-03-29] MEDS: HYDROMORPHONE 1MG/1ML INJ IV PRN ×3 (05:37→18:42)
[2017-03-29 07:28] LABS: BASOPHILS % 0.4 % (0.0-1.0); EOSINOPHILS # (AUTO) 0.1 (0.0-0.4); EOSINOPHILS % 1.6 % (0.0-6.0); HEMATOCRIT 26.1 % (38.2-49.6); HEMOGLOBIN 8.5 g/dL (14.0-18.0); LYMPHOCYTES # (AUTO) 3.4 (1.0-3.2); LYMPHOCYTES % 44.8 % (18.0-39.1); MEAN CORPUSCULAR HEMOGLOBIN 27.2 pg (28-32); MEAN CORPUSCULAR HGB CONC 32.6 g/dL (31-35); MEAN CORPUSCULAR VOLUME 83.4 fL (81-99); MONOCYTES # (AUTO) 0.7 (0.2-0.8); NEUTROPHILS # (AUTO) 3.4 (2.1-6.9); NEUTROPHILS % 43.8 % (38.7-80.0); PLATELET COUNT 481 x10e3/uL (140-360); RED BLOOD COUNT 3.13 x10e6/uL (4.3-5.7); RED CELL DISTRIBUTION WIDTH 15.2 % (11.7-14.4)
[2017-03-29] MEDS: INSULIN LISPRO 100 UNIT/1 ML 3ML VIAL SQ SCH ×7 (07:30→19:34)
--- NOTE | 2017-03-29 07:30 | Progress Note ---
DATE: March 29, 2017 TIME: 7:06 a.m. OVERNIGHT: No events. REVIEW OF SYSTEMS: Denies any dizziness. PHYSICAL EXAMINATION VITAL SIGNS: Reviewed. GENERAL: A tired-appearing man resting in bed. HEENT: Anicteric. CARDIOVASCULAR: Normal S1 and S2. LUNGS: Moderate breath sounds. ABDOMEN: Soft, nontender and nondistended. EXTREMITIES: Left BKA. SKIN: Dry. PSYCHIATRIC: Normal affect. LABS: Reviewed. MEDICATIONS: Reviewed. ASSESSMENT: A 46-year-old man with: 1. Severe sepsis. 2. Necrotic left foot/foot ulcer: Status post below knee amputation. 3. Normocytic anemia, moderate. 4. Diabetes mellitus, type 2: Hemoglobin A1c 8.8, LDL 81 and triglycerides 61. 5. Left foot pain. 6. Hypertension/hyperlipidemia. 7. Foot stump site edema. PLAN 1. Continue physical therapy. 2. SNF evaluation with plan for rehab when he is ready to place prosthesis. 3. Glucose management. 4. Hemoglobin continues to improve on its own. Yesterday, was 8.3. Will obtain H and H today. 5. Continue Zosyn and clindamycin. Job#: [id number] SD
[2017-03-29 07:58] VITALS: BP 119/63
[2017-03-29] MEDS: FAMOTIDINE 20 MG TAB PO SCH ×2 (09:00→17:30)
[2017-03-29] MEDS: METOPROLOL TARTRATE 50 MG TAB PO SCH ×2 (09:00→20:15)
[2017-03-29 12:00] VITALS: BP 118/69
[2017-03-29 15:45] VITALS: BP 134/64
[2017-03-29 19:47] VITALS: BP 119/69
[2017-03-29] MEDS: INSULIN DETEMIR 100 UNIT/ML PEN SQ SCH (20:15)
[2017-03-30] VITALS (7 sets, daily range): BP systolic 107–129; BP diastolic 58–82
[2017-03-30] MEDS: PIPERACILLIN/TAZO 4.5 GM 100 ML IV SCH ×4 (01:40→20:36)
[2017-03-30] MEDS: HYDROMORPHONE 1MG/1ML INJ IV PRN ×4 (01:50→20:36)
[2017-03-30] MEDS: SODIUM CHLORIDE 0.9% 1000ML 1,000 ML IV SCH ×4 (02:05→20:36)
[2017-03-30] MEDS: INSULIN LISPRO 100 UNIT/1 ML 3ML VIAL SQ SCH ×7 (07:30→20:36)
[2017-03-30] MEDS: FAMOTIDINE 20 MG TAB PO SCH ×2 (08:00→16:41)
[2017-03-30] MEDS: METOPROLOL TARTRATE 50 MG TAB PO SCH ×2 (08:26→20:36)
[2017-03-30] MEDS: INSULIN DETEMIR 100 UNIT/ML PEN SQ SCH (20:36)
[2017-03-31] VITALS: BP 128/79
[2017-03-31] MEDS: SODIUM CHLORIDE 0.9% 1000ML 1,000 ML IV SCH ×4 (00:25→23:07)
[2017-03-31] MEDS: HYDROMORPHONE 1MG/1ML INJ IV PRN (00:36)
[2017-03-31] MEDS: PIPERACILLIN/TAZO 4.5 GM 100 ML IV SCH ×4 (02:48→20:22)
[2017-03-31 04:00] VITALS: BP 102/62
[2017-03-31] MEDS: INSULIN LISPRO 100 UNIT/1 ML 3ML VIAL SQ SCH ×7 (07:30→20:22)
[2017-03-31] MEDS: FAMOTIDINE 20 MG TAB PO SCH ×2 (08:23→17:03)
[2017-03-31] MEDS: METOPROLOL TARTRATE 50 MG TAB PO SCH ×2 (08:24→20:22)
[2017-03-31 08:56] VITALS: BP_SYST 132; BP_SYST 138; BP_DIAS 60; BP_DIAS 62
[2017-03-31 12:00] VITALS: BP 140/68
--- NOTE | 2017-03-31 13:27 | Progress Note ---
DATE: March 30, 2017 MEDICINE PROGRESS NOTE TIME OF SERVICE: 7:40 a.m. SUBJECTIVE: Overnight no events. REVIEW OF SYSTEMS: Denies any dizziness. VITAL SIGNS: Reviewed. PHYSICAL EXAMINATION GENERAL APPEARANCE: A tired-appearing man resting in bed. HEENT: Anicteric. CARDIOVASCULAR: Normal S1/S2. LUNGS: Moderate breath sounds. ABDOMEN: Soft, nontender, nondistended. EXTREMITIES: No edema. Left BKA. SKIN: Dry. PSYCHIATRIC: Normal affect. LABS: Reviewed. MEDICATIONS: Reviewed. ASSESSMENT: A 46-year-old man. 1. Severe sepsis. 2. Chronic left foot ulcer status post below-knee amputation. 3. Normocytic anemia. 4. Diabetes mellitus type 2. Hemoglobin A1c 8.8, LDL 81. 5. Left foot pain. 6. Hypertension/hyperlipidemia. 7. Foot stump side edema. PLAN 1. Continue physical therapy. 2. SNF placement is pending. 3. Glucose management. 4. Follow up labs. 5. Continue antibiotics. Job#: [id number] EV
--- NOTE | 2017-03-31 13:32 | Progress Note ---
DATE: March 31, 2017 MEDICINE PROGRESS NOTE TIME OF SERVICE: 7 a.m. SUBJECTIVE: Overnight no events. REVIEW OF SYSTEMS: Denies any dizziness or chest pain. VITAL SIGNS: Reviewed. PHYSICAL EXAMINATION GENERAL APPEARANCE: A tired-appearing man resting in bed. HEENT: Anicteric. CARDIOVASCULAR: Normal S1/S2. LUNGS: Moderate breath sounds. ABDOMEN: Soft, nontender, nondistended. EXTREMITIES: Left BKA. Dressing clean and dry. SKIN: Dry. PSYCHIATRIC: Normal affect. LABS: Reviewed. MEDICATIONS: Reviewed. ASSESSMENT: A 46-year-old man. 1. Severe sepsis. 2. Necrotic left foot ulcer, status post below-knee amputation. 3. Normocytic anemia. 4. Diabetes mellitus type 2. Hemoglobin A1c 8.8, LDL 81. 5. Left foot pain. 6. Hypertension/hyperlipidemia. 7. Foot stump site edema. PLAN 1. Continue physical therapy. 2. Continue IV antibiotics. 3. Awaiting skilled facility placement. 4. Continue insulin, Levemir. 5. Continue blood pressure control. 6. All cultures remain negative. 7. Obtain H\T\H tomorrow and basic metabolic panel. Job#: [id number] EV
[2017-03-31] MEDS: HYDROMORPHONE 2MG/ML INJ IV PRN ×3 (14:22→23:05)
[2017-03-31 16:33] VITALS: BP 122/70
[2017-03-31 20:00] VITALS: BP 124/72
[2017-03-31] MEDS: INSULIN DETEMIR 100 UNIT/ML PEN SQ SCH (20:22)
[2017-04-01] VITALS (7 sets, daily range): BP systolic 113–139; BP diastolic 61–91
[2017-04-01] MEDS: PIPERACILLIN/TAZO 4.5 GM 100 ML IV SCH ×4 (02:05→20:54)
[2017-04-01] MEDS: SODIUM CHLORIDE 0.9% 1000ML 1,000 ML IV SCH ×3 (02:05→17:08)
[2017-04-01] MEDS: HYDROMORPHONE 2MG/ML INJ IV PRN ×4 (03:05→23:15)
[2017-04-01 07:11] LABS: HEMATOCRIT 37.5 % (38.2-49.6); HEMOGLOBIN 12.1 g/dL (14.0-18.0)
[2017-04-01 07:27] LABS: ANION GAP 9.8 mmol/L (8-16); BLOOD UREA NITROGEN 10 mg/dL (7-26); BUN/CREATININE RATIO 17 (6-25); CALCIUM 8.6 mg/dL (8.4-10.2); CARBON DIOXIDE 26 mmol/L (22-29); CHLORIDE 105 mmol/L (98-107); EST GLOMERULAR FILTRATION RATE > 60 ML/MIN (60-); GLUCOSE 153 mg/dL (74-118); POTASSIUM 3.8 mmol/L (3.5-5.1); SODIUM 137 mmol/L (136-145)
[2017-04-01] MEDS: FAMOTIDINE 20 MG TAB PO SCH ×2 (08:51→17:08)
[2017-04-01] MEDS: INSULIN LISPRO 100 UNIT/1 ML 3ML VIAL SQ SCH ×7 (08:51→20:46)
[2017-04-01] MEDS: METOPROLOL TARTRATE 50 MG TAB PO SCH ×2 (08:52→20:54)
[2017-04-01] MEDS: INSULIN DETEMIR 100 UNIT/ML PEN SQ SCH (20:54)
[2017-04-02] VITALS: BP 133/79
[2017-04-02] MEDS: PIPERACILLIN/TAZO 4.5 GM 100 ML IV SCH ×4 (02:58→20:31)
[2017-04-02] MEDS: SODIUM CHLORIDE 0.9% 1000ML 1,000 ML IV SCH ×3 (02:58→16:58)
[2017-04-02 04:00] VITALS: BP 122/70
[2017-04-02] MEDS: HYDROMORPHONE 2MG/ML INJ IV PRN ×3 (05:36→18:16)
[2017-04-02] MEDS: INSULIN LISPRO 100 UNIT/1 ML 3ML VIAL SQ SCH ×7 (07:30→20:24)
[2017-04-02] MEDS: FAMOTIDINE 20 MG TAB PO SCH ×2 (08:31→16:56)
[2017-04-02] MEDS: METOPROLOL TARTRATE 50 MG TAB PO SCH ×2 (08:32→20:31)
[2017-04-02] MEDS: FUROSEMIDE 20 MG TAB PO SCH (08:32)
[2017-04-02 08:39] VITALS: BP 108/68
[2017-04-02 11:58] VITALS: BP 123/70
[2017-04-02 16:19] VITALS: BP 114/70
[2017-04-02 20:00] VITALS: BP 128/71
[2017-04-02] MEDS: INSULIN DETEMIR 100 UNIT/ML PEN SQ SCH (20:32)
[2017-04-03] VITALS: BP 128/81
[2017-04-03] MEDS: HYDROMORPHONE 2MG/ML INJ IV PRN ×3 (01:04→19:10)
[2017-04-03] MEDS: SODIUM CHLORIDE 0.9% 1000ML 1,000 ML IV SCH ×3 (02:05→18:07)
[2017-04-03] MEDS: PIPERACILLIN/TAZO 4.5 GM 100 ML IV SCH ×4 (02:45→20:44)
[2017-04-03 04:00] VITALS: BP 126/74
--- NOTE | 2017-04-03 04:24 | Progress Note ---
DATE: April 01, 2017 TIME: 6:15 a.m. OVERNIGHT: No events. REVIEW OF SYSTEMS: Denies any dizziness. PHYSICAL EXAMINATION VITAL SIGNS: Reviewed. GENERAL: A tired-appearing man resting in bed. HEENT: Anicteric. CARDIOVASCULAR: Normal S1 and S2. LUNGS: Moderate breath sounds. ABDOMEN: Soft, nontender and nondistended. EXTREMITIES: Left BKA. Dressing is clean and dry. SKIN: Dry. PSYCHIATRIC: Normal affect. LABS: Reviewed. MEDICATIONS: Reviewed. ASSESSMENT: A 46-year-old man with: 1. Severe sepsis. 2. Necrotic left foot ulcer: Status post below knee amputation. 3. Normocytic anemia. 4. Diabetes mellitus, type 2: Hemoglobin A1c 8.8 and LDL 81. 5. Left foot pain. 6. Hypertension/hyperlipidemia. 7. Foot stump site edema. PLAN 1. Continue physical therapy. 2. Continue IV antibiotics. 3. Awaiting skilled facility placement. 4. Continue insulin Levemir and titrate as appropriate. 5. All cultures remain negative. Job#: [id number] MN
--- NOTE | 2017-04-03 04:27 | Progress Note ---
DATE: April 02, 2017 TIME: 6:15 a.m. OVERNIGHT: No events. REVIEW OF SYSTEMS: Denies any dizziness or chest pain. PHYSICAL EXAMINATION VITAL SIGNS: Reviewed. GENERAL: A tired-appearing man resting in bed. HEENT: Anicteric. CARDIOVASCULAR: Normal S1 and S2. LUNGS: Moderate breath sounds. ABDOMEN: Soft, nontender and nondistended. EXTREMITIES: Left BKA. Dressing clean and dry. He has some edema of the stump site. SKIN: Dry. PSYCHIATRIC: Normal affect. LABS: Reviewed. MEDICATIONS: Reviewed. ASSESSMENT: A 46-year-old man with: 1. Severe sepsis. 2. Necrotic left foot ulcer: Status post below knee amputation. 3. Normocytic anemia. 4. Diabetes mellitus, type 2: Hemoglobin A1c 8.8 and LDL 81. 5. Left foot pain. 6. Hypertension/hyperlipidemia. 7. Foot stump site edema. PLAN 1. Lasix for edema of the foot stump site. 2. Continue physical therapy. 3. IV antibiotics. 4. All cultures remain negative. 5. Insulin regimen and titrate as appropriate. 6. Follow up labs. Job#: [id number] PA
[2017-04-03] MEDS: INSULIN LISPRO 100 UNIT/1 ML 3ML VIAL SQ SCH ×8 (07:30→20:44)
[2017-04-03] MEDS: METOPROLOL TARTRATE 50 MG TAB PO SCH ×2 (08:24→20:44)
[2017-04-03] MEDS: FUROSEMIDE 20 MG TAB PO SCH (08:24)
[2017-04-03] MEDS: FAMOTIDINE 20 MG TAB PO SCH ×2 (08:24→17:58)
[2017-04-03 10:12] VITALS: BP 127/77
[2017-04-03 13:57] VITALS: BP 125/74
[2017-04-03 20:00] VITALS: BP 117/70
[2017-04-03] MEDS: INSULIN DETEMIR 100 UNIT/ML PEN SQ SCH (20:44)
[2017-04-04] VITALS: BP 124/81
[2017-04-04] MEDS: PIPERACILLIN/TAZO 4.5 GM 100 ML IV SCH ×4 (01:29→20:11)
[2017-04-04] MEDS: HYDROMORPHONE 2MG/ML INJ IV PRN ×4 (01:29→21:25)
[2017-04-04] MEDS: SODIUM CHLORIDE 0.9% 1000ML 1,000 ML IV SCH ×4 (02:05→20:11)
[2017-04-04 04:00] VITALS: BP 121/82
[2017-04-04] MEDS: INSULIN LISPRO 100 UNIT/1 ML 3ML VIAL SQ SCH ×7 (07:30→20:11)
[2017-04-04] MEDS: METOPROLOL TARTRATE 50 MG TAB PO SCH ×2 (08:15→20:11)
[2017-04-04] MEDS: FUROSEMIDE 20 MG TAB PO SCH (08:15)
[2017-04-04] MEDS: FAMOTIDINE 20 MG TAB PO SCH ×2 (08:15→18:00)
[2017-04-04 08:40] VITALS: BP 144/65
[2017-04-04 12:00] VITALS: BP 125/80
[2017-04-04 16:45] VITALS: BP 117/69
[2017-04-04 20:00] VITALS: BP 143/81
[2017-04-04] MEDS: INSULIN DETEMIR 100 UNIT/ML PEN SQ SCH (20:11)
[2017-04-05] VITALS (7 sets, daily range): BP systolic 115–145; BP diastolic 61–83
[2017-04-05] MEDS: PIPERACILLIN/TAZO 4.5 GM 100 ML IV SCH ×4 (02:07→20:31)
[2017-04-05] MEDS: HYDROMORPHONE 2MG/ML INJ IV PRN ×3 (05:03→22:14)
[2017-04-05] MEDS: INSULIN LISPRO 100 UNIT/1 ML 3ML VIAL SQ SCH ×7 (07:30→20:59)
[2017-04-05] MEDS: SODIUM CHLORIDE 0.9% 1000ML 1,000 ML IV SCH ×2 (08:35→18:05)
[2017-04-05] MEDS: FUROSEMIDE 20 MG TAB PO SCH (08:35)
[2017-04-05] MEDS: FAMOTIDINE 20 MG TAB PO SCH ×2 (08:35→17:31)
[2017-04-05] MEDS: METOPROLOL TARTRATE 50 MG TAB PO SCH ×2 (08:35→20:58)
[2017-04-05] MEDS ORDERED: HYDROCODONE/APAP 7.5MG-325MG 1 EA TAB PO PRN (19:30)
[2017-04-05] MEDS: INSULIN DETEMIR 100 UNIT/ML PEN SQ SCH (20:59)
[2017-04-06] VITALS (7 sets, daily range): BP systolic 119–134; BP diastolic 71–90
[2017-04-06] MEDS ORDERED: SODIUM CHLORIDE 0.9% 250ML 250 ML ONE (02:14)
[2017-04-06] MEDS: PIPERACILLIN/TAZO 4.5 GM 100 ML IV SCH ×4 (02:19→20:37)
[2017-04-06] MEDS: HYDROMORPHONE 2MG/ML INJ IV PRN (02:27)
[2017-04-06] MEDS: INSULIN LISPRO 100 UNIT/1 ML 3ML VIAL SQ SCH ×6 (07:30→20:38)
[2017-04-06] MEDS: FUROSEMIDE 20 MG TAB PO SCH (09:14)
[2017-04-06] MEDS: FAMOTIDINE 20 MG TAB PO SCH ×2 (09:14→16:56)
[2017-04-06] MEDS: METOPROLOL TARTRATE 50 MG TAB PO SCH ×2 (09:15→20:38)
[2017-04-06] MEDS: INSULIN DETEMIR 100 UNIT/ML PEN SQ SCH (20:35)
[2017-04-06] MEDS ORDERED: ZOLPIDEM TARTRATE 5 MG TAB PO PRN (23:30)
[2017-04-07] VITALS (8 sets, daily range): BP systolic 133–150; BP diastolic 78–89
[2017-04-07] MEDS: PIPERACILLIN/TAZO 4.5 GM 100 ML IV SCH ×4 (02:34→20:05)
[2017-04-07] MEDS: INSULIN LISPRO 100 UNIT/1 ML 3ML VIAL SQ SCH ×7 (07:30→20:14)
[2017-04-07] MEDS: METOPROLOL TARTRATE 50 MG TAB PO SCH ×2 (08:51→20:14)
[2017-04-07] MEDS: FAMOTIDINE 20 MG TAB PO SCH ×2 (08:51→17:07)
[2017-04-07] MEDS: FUROSEMIDE 20 MG TAB PO SCH (08:51)
[2017-04-07] MEDS: INSULIN DETEMIR 100 UNIT/ML PEN SQ SCH (20:15)
[2017-04-07] MEDS: ZOLPIDEM TARTRATE 5 MG TAB PO PRN (23:03)
[2017-04-08] VITALS (8 sets, daily range): BP systolic 114–135; BP diastolic 57–87
[2017-04-08] MEDS: PIPERACILLIN/TAZO 4.5 GM 100 ML IV SCH ×4 (01:42→20:00)
[2017-04-08] MEDS: INSULIN LISPRO 100 UNIT/1 ML 3ML VIAL SQ SCH ×7 (07:30→21:00)
[2017-04-08] MEDS: METOPROLOL TARTRATE 50 MG TAB PO SCH ×2 (09:00→23:10)
[2017-04-08] MEDS: FAMOTIDINE 20 MG TAB PO SCH ×2 (09:00→17:36)
[2017-04-08] MEDS: FUROSEMIDE 20 MG TAB PO SCH (09:00)
[2017-04-08] MEDS: INSULIN DETEMIR 100 UNIT/ML PEN SQ SCH (21:00)
[2017-04-08] MEDS: ZOLPIDEM TARTRATE 5 MG TAB PO PRN (23:45)
[2017-04-09] MEDS: PIPERACILLIN/TAZO 4.5 GM 100 ML IV SCH ×3 (02:00→13:39)
[2017-04-09 04:00] VITALS: BP 129/78
[2017-04-09] MEDS: INSULIN LISPRO 100 UNIT/1 ML 3ML VIAL SQ SCH ×4 (07:30→12:37)
--- NOTE | 2017-04-09 07:50 | Progress Note ---
DATE: April 09, 2017 TIME: 7:26 a.m. OVERNIGHT: No events. REVIEW OF SYSTEMS: Denies any dizziness or chest pain. PHYSICAL EXAMINATION VITAL SIGNS: Reviewed. GENERAL: A tired-appearing man resting in bed. HEENT: Anicteric. CARDIOVASCULAR: Normal S1 and S2. LUNGS: Moderate breath sounds. ABDOMEN: Soft, nontender and nondistended. EXTREMITIES: No edema or calf tenderness. On his left leg, he has a BKA. Dressing in place clean and dry. SKIN: Dry. PSYCHIATRIC: Normal affect. LABS: Reviewed. MEDICATIONS: Reviewed. ASSESSMENT: A 46-year-old man with: 1. Severe sepsis. 2. Necrotic left foot ulcer. 3. Normocytic anemia. 4. Diabetes mellitus, type 2. 5. Left foot pain. 6. Hypertension/hyperlipidemia. 7. Foot stump site edema. PLAN 1. Doing better. Has improved. He has been on antibiotics. Leukocytosis has since resolved. 2. Continue IV Zosyn for severe sepsis. 3. Normocytic anemia has improved. Will get labs today. 4. I have discussed discharge planning with the patient. He wants to remain here for an additional 2-3 days while awaiting insurance approval for skilled facility. If not approved by Saturday, then he plans to go home with physical therapy. 5. Continue medication regimen, including Ambien, metoprolol tartrate and Pepcid, as well as Lasix 20 mg p.o. daily. Job#: [id number] LOCO
[2017-04-09 08:17] LABS: BASOPHILS # (AUTO) 0.1 (0.0-0.1); BASOPHILS % 0.8 % (0.0-1.0); EOSINOPHILS # (AUTO) 0.1 (0.0-0.4); EOSINOPHILS % 1.2 % (0.0-6.0); HEMATOCRIT 33.1 % (38.2-49.6); HEMOGLOBIN 10.9 g/dL (14.0-18.0); LYMPHOCYTES # (AUTO) 2.9 (1.0-3.2); MEAN CORPUSCULAR HEMOGLOBIN 27.8 pg (28-32); MEAN CORPUSCULAR HGB CONC 32.9 g/dL (31-35); MEAN CORPUSCULAR VOLUME 84.4 fL (81-99); MONOCYTES # (AUTO) 0.5 (0.2-0.8); MONOCYTES % 7.7 % (4.4-11.3); NEUTROPHILS % 46.1 % (38.7-80.0); PLATELET COUNT 371 x10e3/uL (140-360); RED BLOOD COUNT 3.92 x10e6/uL (4.3-5.7); RED CELL DISTRIBUTION WIDTH 16.1 % (11.7-14.4)
[2017-04-09] MEDS: FAMOTIDINE 20 MG TAB PO SCH (08:36)
[2017-04-09] MEDS: FUROSEMIDE 20 MG TAB PO SCH (08:36)
[2017-04-09] MEDS: METOPROLOL TARTRATE 50 MG TAB PO SCH (08:36)
[2017-04-09 08:41] VITALS: BP 124/68
[2017-04-09 08:53] LABS: ANION GAP 12.1 mmol/L (8-16); BLOOD UREA NITROGEN 13 mg/dL (7-26); BUN/CREATININE RATIO 17 (6-25); CALCIUM 9.6 mg/dL (8.4-10.2); CARBON DIOXIDE 26 mmol/L (22-29); CHLORIDE 106 mmol/L (98-107); CREATININE, SERUM 0.75 mg/dL (0.72-1.25); EST GLOMERULAR FILTRATION RATE > 60 ML/MIN (60-); GLUCOSE 116 mg/dL (74-118); MAGNESIUM 1.3 MG/DL (1.3-2.1); PHOSPHORUS 3.5 MG/DL (2.3-4.7); POTASSIUM 4.1 mmol/L (3.5-5.1); SODIUM 140 mmol/L (136-145)
[2017-04-09 10:44] VITALS: BP 124/68
[2017-04-09] MEDS ORDERED: ACETAMINOPHEN/CODEINE 300MG - 30MG TAB PO PRN (13:00)
== END 2017-04-09 14:23 | DRG 854 ==
LOC: ER 16:38 → ICU 19:42 → MED/SURG 03-23 12:50
PROVIDERS: ADMIT Internal Medicine; ATTEND Internal Medicine
PROC: 30233N1 Transfusion of Nonautologous Red Blood Cells into Peripheral Vein, Percutaneous Approach (ICD-10-PCS; 2017-03-20)
PROC: 0Y6J0Z1 Detachment at Left Lower Leg, High, Open Approach (ICD-10-PCS; principal; 2017-03-21 12:35)
DX: A41.9 Sepsis, unspecified organism (principal); E11.52 Type 2 diabetes mellitus with diabetic peripheral angiopathy with gangrene; N17.9 Acute kidney failure, unspecified; E11.610 Type 2 diabetes mellitus with diabetic neuropathic arthropathy; E11.621 Type 2 diabetes mellitus with foot ulcer; L97.529 Non-pressure chronic ulcer of other part of left foot with unspecified severity; E11.65 Type 2 diabetes mellitus with hyperglycemia; R65.20 Severe sepsis without septic shock; I10 Essential (primary) hypertension; E78.5 Hyperlipidemia, unspecified; Z91.14 Patient's other noncompliance with medication regimen; D63.8 Anemia in other chronic diseases classified elsewhere; G54.7 Phantom limb syndrome without pain
CPT/HCPCS: 36415; 36430; 80048; 80053; 80061; 80202; 82948; 83036; 83605; 83735; 84100; 85014; 85018; 85025; 86850; 86900; 86920; 87040; 88307; 88311; 93005; 96366; 96372; 96374; 97139; 99284; J1170; J1650; J1940; J2250; J2270; J2543; J3370; J7030; J7050; P9016

== ENCOUNTER 2018-10-03 12:55 | Emergency (ER) | payer SELFPAY ==
[~2018-10-03] VITALS: Ht 375.9 cm; Wt 90.3 kg
[2018-10-03] MEDS ORDERED: IBUPROFEN 400 MG TAB PO ONE (14:00)
--- NOTE | 2018-10-03 14:36 | Diagnostic Imaging Report ---
Exam: Left lower leg 2 views History: Fall, concern for fracture Comparison: None. Findings: Status post bscta-qqj-toip amputation. No acute displaced fracture or dislocation. No cortical erosive or destructive change. No soft tissue defect or radiopaque foreign body. Mild degenerative arthrosis of the knee. Impression: No acute displaced fracture or dislocation status post left below the knee amputation. Signed by: Dr. Nilton Howell M.D. on 10/03/2018 2:32 PM
[2018-10-03 16:24] VITALS: BP 139/81
== END 2018-10-03 16:10 | disposition home or self-care (01) ==
LOC: ER 12:55
DX: S80.12XA Contusion of left lower leg, initial encounter (principal); W19.XXXA Unspecified fall, initial encounter; Y92.019 Unspecified place in single-family (private) house as the place of occurrence of the external cause; Z89.512 Acquired absence of left leg below knee
CPT/HCPCS: 99283

== ENCOUNTER 2019-05-03 17:57 | Inpatient (IN) | payer BC ==
[~2019-05-03] VITALS: Ht 193 cm; Wt 123.8 kg
--- OUTSIDE RECORDS SUMMARY | 2019-05-03 18:00 | XMS REPORT ---
[facility] Address Unknown Phone Unavailable Care Team Providers Care Commissary Clerk Name Role Phone Delmis CARCAMO Unavailable Unavailable Problems This patient has no known problems. Allergies, Adverse Reactions, Alerts This patient has no known allergies or adverse reactions. Medications This patient has no known medications. Results Test Description Test Time Test Comments Text Results Atomic Results Result Comments LOWER LEG LEFT 2018-10-03 14:31:00 [place] [address] Patient Name: TRENA PLASCENCIA MR #: [id number] : 1970 Age/Sex: 48/M Req #: [id number] Adm Physician: Ordered by: MARY CARCAMO MD Report #: [id number] Location: ER Room/Bed: Procedure: [id number] DX/LOWER LEG LEFT Exam Date: 10/03/18 Exam Time: 1400 REPORT STATUS: Signed Exam: Left lower leg 2 views History: Fall, concern for fracture Comparison: None. Findings: Status post elbax-nmw-krhm amputation. No acute displaced fracture or dislocation. No cortical erosive or destructive change. No soft tissue defect or radiopaque foreign body. Mild degenerative arthrosis of the knee. Impression: No acute displaced fracture or dislocation status post left below the knee amputation. Signed by: Dr. Cathie Howell M.D. on 10/03/2018 2:32 PM Dictated By: CATHIE HOWELL MD [id number] Transcribed By: LILLY on 10/03/18 1432 COPY TO: MARY CARCAMO MD
[2019-05-03] MEDS ORDERED: VANCOMYCIN 1GM/NS 250 ML 250 ML IV NR (18:30)
[2019-05-03] MEDS: PIPER-TAZ 3.375 GM 50 ML IV NR ×2 (18:48→18:56)
[2019-05-03 18:57] LABS: BASOPHILS % 0.2 % (0.0-1.0); EOSINOPHILS # (AUTO) 0.1 (0.0-0.4); HEMATOCRIT 37.5 % (38.2-49.6); HEMOGLOBIN 12.7 g/dL (14.0-18.0); LYMPHOCYTES # (AUTO) 2.4 (1.0-3.2); MEAN CORPUSCULAR HEMOGLOBIN 27.3 pg (28-32); MEAN CORPUSCULAR HGB CONC 33.9 g/dL (31-35); MEAN CORPUSCULAR VOLUME 80.5 fL (81-99); MONOCYTES # (AUTO) 0.7 (0.2-0.8); MONOCYTES % 8.1 % (4.4-11.3); NEUTROPHILS # (AUTO) 4.9 (2.1-6.9); NEUTROPHILS % 60.5 % (38.7-80.0); PLATELET COUNT 370 x10e3/uL (140-360); RED BLOOD COUNT 4.66 x10e6/uL (4.3-5.7); RED CELL DISTRIBUTION WIDTH 12.3 % (11.7-14.4)
--- NOTE | 2019-05-03 18:58 | NUR ---
REPORT GIVEN TO [place] JOHNSON
[2019-05-03 19:34] LABS: ALANINE AMINOTRANSFERASE 28 IU/L (0-55); ALBUMIN 3.9 g/dL (3.5-5.0); ALKALINE PHOSPHATASE 103 IU/L (40-150); ANION GAP 17.7 mmol/L (8-16); BLOOD UREA NITROGEN 8 mg/dL (7-26); BUN/CREATININE RATIO 6 (6-25); CALCIUM 9.6 mg/dL (8.4-10.2); CARBON DIOXIDE 22 mmol/L (22-29); CHLORIDE 99 mmol/L (98-107); CREATININE, SERUM 1.24 mg/dL (0.72-1.25); EST GLOMERULAR FILTRATION RATE > 60 ML/MIN (60-); GLUCOSE 148 mg/dL (74-118); POTASSIUM 3.7 mmol/L (3.5-5.1); SODIUM 135 mmol/L (136-145)
[2019-05-03 19:36] LABS: CLARITY,URINE CLEAR (CLEAR); COLOR,URINE YELLOW (YELLOW); KETONES,URINE 1+ (NEGATIVE); LEUKOCYTE ESTERASE ,URINE NEGATIVE (NEGATIVE); NITRITE,URINE NEGATIVE (NEGATIVE); PROTEIN,URINE DIPSTICK NEGATIVE (NEGATIVE); URINE UROBILINOGEN 0.2 mg/dL (0.2 - 1)
[2019-05-03 19:37] LABS: BACTERIA,URINE RARE /HPF; BILIRUBIN,URINE SMALL (NEGATIVE); EPITHELIAL CELLS,URINE FEW /LPF; RBC,URINE 0-5 /HPF (0-5); WBC,URINE (MAN) 0-5 /HPF (0-5)
[2019-05-03] MEDS ORDERED: ONDANSETRON HCL INJ 2MG/ML 2ML 2 MG/ML VIAL IV PRN (19:45)
[2019-05-03] MEDS ORDERED: NEOMYCIN/POLYMYXIN/BACITRACIN 15 GM TUBE TOP ONE (19:45)
[2019-05-03] MEDS ORDERED: MORPHINE SULFATE INJ 4 MG/ML INJ 1ML IV PRN (20:00)
[2019-05-03] MEDS: BACITRACIN ZINC 0.9GM TP SCH (20:20)
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
--- NOTE | 2019-05-03 20:47 | NUR ---
Received patient from Emergency Room. Alert and oriented. BKA to left leg noted with prosthesis. Dressing to right foot intact. Blisters noted, no bleeding. Patient is able to walk independently without difficulty. IV to left AC with 18 guage needle.
[2019-05-03] MEDS ORDERED: SODIUM CHLORIDE 0.9% 250ML 250 ML ONE (22:17)
[2019-05-03] MEDS: PIPER-TAZ 3.375 GM 50 ML IV SCH (22:40)
[2019-05-03 23:09] VITALS: BP 128/82
[2019-05-03 23:13] VITALS: BP 128/82
[2019-05-03] MEDS ORDERED: ATORVASTATIN CA20 MG PO (23:17)
[2019-05-03] MEDS ORDERED: METOPROLOL TART50 MG PO (23:18)
[2019-05-03] MEDS ORDERED: LEVEMIR100 UNIT/1 SC (23:19)
[2019-05-04] VITALS (7 sets, daily range): BP systolic 110–126; BP diastolic 63–77
[2019-05-04 06:02] LABS: BASOPHILS # (AUTO) 0.1 (0.0-0.1); BASOPHILS % 0.9 % (0.0-1.0); EOSINOPHILS # (AUTO) 0.2 (0.0-0.4); EOSINOPHILS % 2.4 % (0.0-6.0); HEMATOCRIT 37.4 % (38.2-49.6); LYMPHOCYTES # (AUTO) 2.2 (1.0-3.2); LYMPHOCYTES % 32.3 % (18.0-39.1); MEAN CORPUSCULAR HEMOGLOBIN 27.4 pg (28-32); MEAN CORPUSCULAR HGB CONC 34.8 g/dL (31-35); MEAN CORPUSCULAR VOLUME 78.9 fL (81-99); MONOCYTES # (AUTO) 0.8 (0.2-0.8); NEUTROPHILS # (AUTO) 3.5 (2.1-6.9); NEUTROPHILS % 52.3 % (38.7-80.0); PLATELET COUNT 327 x10e3/uL (140-360); RED BLOOD COUNT 4.74 x10e6/uL (4.3-5.7); RED CELL DISTRIBUTION WIDTH 12.2 % (11.7-14.4)
[2019-05-04 06:23] LABS: ANION GAP 15.1 mmol/L (8-16); BLOOD UREA NITROGEN 8 mg/dL (7-26); BUN/CREATININE RATIO 7 (6-25); CALCIUM 9.7 mg/dL (8.4-10.2); CARBON DIOXIDE 24 mmol/L (22-29); CHLORIDE 101 mmol/L (98-107); EST GLOMERULAR FILTRATION RATE > 60 ML/MIN (60-); GLUCOSE 146 mg/dL (74-118); POTASSIUM 4.1 mmol/L (3.5-5.1); SODIUM 136 mmol/L (136-145)
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
[2019-05-04] MEDS: PIPER-TAZ 3.375 GM 50 ML IV SCH ×3 (06:49→21:29)
[2019-05-04 06:57] LABS: CHOL/HDL RATIO 6.2 (3.9-4.7)
[2019-05-04] MEDS ORDERED: DEXTROSE 50% SYRINGE 50 ML IV PRN (07:15)
--- NOTE | 2019-05-04 08:54 | NUR ---
Obs review done, patient here with wounds to right foot. Awaiting wound care consult
[2019-05-04] MEDS: METOPROLOL TARTRATE 50 MG TAB PO SCH ×2 (08:58→17:10)
[2019-05-04] MEDS: INSULIN REGULAR, HUMAN 100 UNIT/1 ML 3ML VIAL SQ SCH ×4 (08:58→21:29)
[2019-05-04] MEDS ORDERED: ONDANSETRON HCL 4 MG ORAL DISINTEGRATING TAB PO PRN (10:30)
[2019-05-04] MEDS: SILVER SULFADIAZINE 50GM CREAM TOP SCH ×2 (12:00→17:00)
--- NOTE | 2019-05-04 12:00 | NUR ---
Handoff report to Dre RN made aware patient is off unit for x-rays, nurse made aware patient needs to be covered with sliding scale insulin nurse verbalized understanding.
--- NOTE | 2019-05-04 12:41 | NUR ---
Recvd patient from MS1. AAOx3, not in any distress, assisted him to bed, call light in reach
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
--- NOTE | 2019-05-04 14:07 | NUR ---
paged Dr Cat regarding foot&ankle x-ray result
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
--- NOTE | 2019-05-04 16:45 | NUR ---
Jannette costello from Dr Cat's office said that he will see X-ray result tomorrow.
[2019-05-04] MEDS: ENOXAPARIN SOD INJ 40 MG/0.4 ML SYR SC SCH (17:00)
[2019-05-04] MEDS ORDERED: SODIUM CHLORIDE 0.9% 250ML 250 ML ONE (17:16)
[2019-05-04] MEDS: BACITRACIN ZINC 0.9GM TP SCH (17:59)
--- NOTE | 2019-05-04 19:02 | NUR ---
Received bedside report from day nurse. Patient resting in bed, no s/s of distress or c/o pain at this time. Refusing bed in low position, states that he prefers to keep the bed up high because that is what he is used to at home. Provided patient education on safety measures. Bed locked, call light placed within reach, side rails up x3. Instructed to call for assistance if needed, verbalized understanding. Leg prosthesis at bedside. Will continue to monitor.
[2019-05-04] MEDS: ATORVASTATIN 40 MG TAB PO SCH (21:29)
[2019-05-04] MEDS: INSULIN GLARGINE 100 UNITS/ML VIAL SC SCH (21:29)
[2019-05-05] VITALS (8 sets, daily range): BP systolic 113–126; BP diastolic 69–77
[2019-05-05] MEDS: PIPER-TAZ 3.375 GM 50 ML IV SCH ×3 (05:33→20:45)
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
--- NOTE | 2019-05-05 06:53 | NUR ---
Bedside report given to day nurse. Patient resting in bed, no s/s of distress or c/o pain at this time. All safety measures in place.
[2019-05-05] MEDS ORDERED: CIPRO500 MG PO (06:54)
[2019-05-05] MEDS ORDERED: CLINDAMYCIN HC150 MG PO (06:54)
[2019-05-05] MEDS ORDERED: SILVADENE20 GM TOP (06:54)
[2019-05-05] MEDS ORDERED: BACITRACIN ZIN1 EACH TP (06:54)
--- NOTE | 2019-05-05 06:54 | NUR ---
Patient still refusing bed in low position. Side rails up x3, bed locked.. Call light placed within reach. Instructed to call for assistance if needed. Verbalized understanding.
[2019-05-05] MEDS: INSULIN REGULAR, HUMAN 100 UNIT/1 ML 3ML VIAL SQ SCH ×4 (07:54→20:30)
[2019-05-05] MEDS: METOPROLOL TARTRATE 50 MG TAB PO SCH ×2 (08:14→16:22)
--- NOTE | 2019-05-05 09:03 | NUR ---
Dr Deborah Cat had rounds, assessed the foot wound, explained to patient about fracture, Dr Cat said patient should be here at least until saturday and to cancel PT order now. Notified to Dr Vasquez, he cancelled discharge order
--- NOTE | 2019-05-05 09:54 | NUR ---
Dressing on rt foot changed with Silvadene cream, slight dressing with kerlex applied, patient tolerated well
[2019-05-05] MEDS: BACITRACIN ZINC 0.9GM TP SCH ×2 (09:56→18:44)
[2019-05-05] MEDS: SILVER SULFADIAZINE 50GM CREAM TOP SCH ×2 (09:56→16:22)
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
--- NOTE | 2019-05-05 12:16 | NUR ---
MET W THE PT AT THE BEDSIDE TO DISCUSS HOME HEALTH OPTIONS. PT SIGNED CHOICE LETTER FOR [facility] @ OFF [phone] / FAX [phone]. COPY TO PT AND COPY TO CHART.
--- NOTE | 2019-05-05 13:19 | NUR ---
CALL RECEIVED FROM [facility]. THEY ARE NOT ABLE TO ACCEPT THE PT. REFERRAL FAXED TO [facility] @ OFF: [phone] / FAX: [phone] Addendum: 05/05/19 at 1706 by Jyoti Beatty CM CALL RECEIVED FROM BERNABE Aburto [facility] NATHALIA STATING PT HAS BEEN ACCEPTED.
--- NOTE | 2019-05-05 15:02 | NUR ---
Education and handout given regarding Diabetic foot care and Diabetic Neuropathy, patient verbalized understanding
[2019-05-05] MEDS: ENOXAPARIN SOD INJ 40 MG/0.4 ML SYR SC SCH (16:22)
--- NOTE | 2019-05-05 17:06 | NUR ---
HOME HEALTH DISCHARGE NOTE PATIENT ADDRESS WHERE SERVICE WILL BE RECEIVED: [address] [place] [address] PATIENT CONTACT NUMBER: [phone] NAME OF HOME HEALTH COMPANY: [employer] TELEPHONE/FAX NUMBER OF COMPANY: OFF: [phone] / FAX: [phone] ADDRESS OF COMPANY: [id number] [facility] [address] [place] [address] SERVICES TO RECEIVE: SKILLED NURSE FOR WOUND CARE ANTICIPATED DATE SERVICES WILL BEGIN: DAY AFTER DC; ADC: 05/07/2019 SOC: 05/08/2019 Please call the company above if you have not received a call to schedule a home visit within 24 hours of discharge.
--- NOTE | 2019-05-05 19:21 | NUR ---
SBAR report received from [facility], patient AOX4, denies pain/discomfort at this time, Left BKA noted, wound right foot, dressing C/D/I, wound care given today per RN, reported that patient ambulates well with prothesis, and back of wheelchair for support, resume care of patient
[2019-05-05] MEDS: ATORVASTATIN 40 MG TAB PO SCH (20:45)
[2019-05-05] MEDS: INSULIN GLARGINE 100 UNITS/ML VIAL SC SCH (22:49)
[2019-05-06] VITALS (10 sets, daily range): BP systolic 116–142; BP diastolic 71–89
--- NOTE | 2019-05-06 00:30 | NUR ---
HOURLY ROUNDING COMPLETED, PATIENT SEEN SLEEPING, NO PAIN OR DISCOMFORT NOTED, SKIN WARM DRY, ALL PERSONAL BELONGINGS WITHIN REACH, BED IN LOWEST POSITION, CALL LIGHT WITHIN REACH, PATIENT ADVISED ME THAT URINAL WAS JUST USED TO VOID WITHIN LAST 30 MINUTES
[2019-05-06] MEDS: PIPER-TAZ 3.375 GM 50 ML IV SCH ×3 (05:20→22:50)
--- NOTE | 2019-05-06 06:04 | NUR ---
WOUND CARE GIVEN TO TOP OF RIGHT FOOT, WOUND CLEANSED WITH STERILE WATER, PAT DRY, SILVADENE & VASELINE GAUZE APPLIED AND LOOSELY WRAPPED, PATIENT TOLERATED WELL, NO PAIN REPORTED
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
--- NOTE | 2019-05-06 06:39 | NUR ---
MD Adrien MARTINEZ ROUNDING ON PATIENT, NO NEW ORDERS
[2019-05-06] MEDS: INSULIN REGULAR, HUMAN 100 UNIT/1 ML 3ML VIAL SQ SCH ×4 (07:13→20:59)
[2019-05-06] MEDS: METOPROLOL TARTRATE 50 MG TAB PO SCH ×2 (08:44→16:43)
--- NOTE | 2019-05-06 14:13 | Progress Note ---
DATE: 05/06/2019 SUBJECTIVE: The patient is seen at bedside, doing somewhat better. Still has swelling to the right lower extremity. Denies any history of fever, chills, nausea, or vomiting. OBJECTIVE: VITAL SIGNS: Afebrile, pulse rate 76, respirations 19, blood pressure 131/82, and O2 saturation 96%. EXTREMITIES: Open lesions still to the dorsal aspect of digits 2, 3 and 4 and dorsal aspect of the right foot. Some cellulitis present with some drainage, but negative foul smell. Moderate amount of swelling noted with pedal pulses palpable. ASSESSMENT: Diabetic neuropathy, multiple grade 2 lesions with a fractured 1st metatarsal base. PLAN: We will continue local wound care. Continue IV antibiotics. The patient will possibly go home on Saturday. We are trying to get Home Health for the patient and the patient is aware, he will not be able to put any weight whatsoever on his right lower extremity to prevent any type of future displacement, which will lead to ORIF and possible amputation down the road secondary to the patient only have one leg. UNRULY Dugan/VITALIY /[id number]
[2019-05-06] MEDS: BACITRACIN ZINC 0.9GM TP SCH ×2 (14:35→16:34)
[2019-05-06] MEDS: SILVER SULFADIAZINE 50GM CREAM TOP SCH ×2 (14:35→16:34)
[2019-05-06] MEDS: ENOXAPARIN SOD INJ 40 MG/0.4 ML SYR SC SCH (16:43)
--- NOTE | 2019-05-06 19:23 | NUR ---
SBAR report received from abbey JOHNSON, patient awake alert, denies pain, no distress noted, sitting up in middle of bed, Left BKA noted, right foot dressing dry intact, mild drainage noted, patient advised that I will change dressing on hourly rounding, okay with that, bed in lowest position, call light within reach will continue to monitor
[2019-05-06] MEDS: ATORVASTATIN 40 MG TAB PO SCH (20:54)
[2019-05-06] MEDS: INSULIN GLARGINE 100 UNITS/ML VIAL SC SCH (20:58)
[2019-05-07] VITALS (10 sets, daily range): BP systolic 113–132; BP diastolic 66–81
--- NOTE | 2019-05-07 05:00 | NUR ---
Dressing on rt foot changed with Silvadene cream, slight dressing with kerlex applied, patient tolerated well
[2019-05-07] MEDS: PIPER-TAZ 3.375 GM 50 ML IV SCH ×2 (05:34→14:00)
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

 05/06 cont care; cont IV abx and LWC. 05/07 check labs; d/c planning; Non-weight bearing on right foot. Konstantin Vasquez MD, PhD.
[2019-05-07] MEDS: INSULIN REGULAR, HUMAN 100 UNIT/1 ML 3ML VIAL SQ SCH ×4 (07:30→22:19)
[2019-05-07 07:46] LABS: BASOPHILS # (AUTO) 0.1 (0.0-0.1); BASOPHILS % 0.7 % (0.0-1.0); EOSINOPHILS # (AUTO) 0.2 (0.0-0.4); EOSINOPHILS % 3.2 % (0.0-6.0); HEMATOCRIT 36.8 % (38.2-49.6); HEMOGLOBIN 12.4 g/dL (14.0-18.0); LYMPHOCYTES # (AUTO) 2.2 (1.0-3.2); LYMPHOCYTES % 31.9 % (18.0-39.1); MEAN CORPUSCULAR HEMOGLOBIN 27.1 pg (28-32); MEAN CORPUSCULAR HGB CONC 33.7 g/dL (31-35); MEAN CORPUSCULAR VOLUME 80.3 fL (81-99); MONOCYTES # (AUTO) 0.6 (0.2-0.8); MONOCYTES % 8.6 % (4.4-11.3); NEUTROPHILS # (AUTO) 3.8 (2.1-6.9); NEUTROPHILS % 55.6 % (38.7-80.0); PLATELET COUNT 318 x10e3/uL (140-360); RED BLOOD COUNT 4.58 x10e6/uL (4.3-5.7); RED CELL DISTRIBUTION WIDTH 12.5 % (11.7-14.4)
[2019-05-07 08:03] LABS: ANION GAP 12.1 mmol/L (8-16); CALCIUM 9.4 mg/dL (8.4-10.2); CARBON DIOXIDE 25 mmol/L (22-29); CHLORIDE 105 mmol/L (98-107); POTASSIUM 4.1 mmol/L (3.5-5.1); SODIUM 138 mmol/L (136-145)
[2019-05-07 08:22] LABS: BLOOD UREA NITROGEN 10 mg/dL (7-26); BUN/CREATININE RATIO 11 (6-25); CREATININE, SERUM 0.91 mg/dL (0.72-1.25); EST GLOMERULAR FILTRATION RATE > 60 ML/MIN (60-); GLUCOSE 118 mg/dL (74-118)
[2019-05-07] MEDS: SILVER SULFADIAZINE 50GM CREAM TOP SCH ×2 (08:35→14:00)
[2019-05-07] MEDS: BACITRACIN ZINC 0.9GM TP SCH ×2 (08:35→14:00)
[2019-05-07] MEDS: METOPROLOL TARTRATE 50 MG TAB PO SCH ×2 (09:12→16:13)
--- NOTE | 2019-05-07 15:44 | Progress Note ---
DATE: 05/07/2019 SUBJECTIVE: The patient at bedside, still moderate amount of swelling to the right lower extremity. Denies any history of fever, chills, nausea, or vomiting. OBJECTIVE: VITAL SIGNS: Afebrile, pulse rate 57, respirations 19, blood pressure 118/75, O2 saturation 98%. LABORATORY DATA: Labs show a white blood cell count of 6.77, hemoglobin 12.4 with a platelet count of 318. Has a blood glucose of 118. Ulcerations and lesions to the dorsal aspect of right foot, healing slowly. Some granulation tissue noted. Some superficial necrosis noted down to subcu, the 2nd, 3rd, and 4th digits, right foot. Positive edema and periwound cellulitis with minimal foul smell, moderate amount of swelling noted to the right lower extremity including foot and leg. ASSESSMENT: Fractured first metatarsal, diabetic neuropathy with multiple grade 1-2 lesions. PLAN: Continue Silvadene followed by petroleum gauze dressing. Continue offloading. We will continue IV antibiotics and offloading shoe was ordered at bedside to be inspected tomorrow morning. UNRULY Dugan/VITALIY /[id number]
[2019-05-07] MEDS: ENOXAPARIN SOD INJ 40 MG/0.4 ML SYR SC SCH (16:07)
--- NOTE | 2019-05-07 19:29 | NUR ---
SBAR report received from telma Rizzo , patient AOX4, denies pain/discomfort at this time, Left BKA noted, prosthetic leg at bedside, wound right foot, dressing C/D/I, non-weight bearing shoe at bedside per MD request patient possible discharge tomorrow
[2019-05-07] MEDS: ATORVASTATIN 40 MG TAB PO SCH (20:05)
[2019-05-07] MEDS: INSULIN GLARGINE 100 UNITS/ML VIAL SC SCH (22:19)
[2019-05-08] VITALS (10 sets, daily range): BP systolic 119–139; BP diastolic 71–87
[2019-05-08] MEDS: PIPER-TAZ 3.375 GM 50 ML IV SCH ×4 (01:28→21:00)
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

 05/06 cont care; cont IV abx and LWC. 05/07 check labs; d/c planning; Non-weight bearing on right foot. 05-08 Boot requested is ready for use at home; will attempt to place at SNF of pt's choice, since critical to keep pt off right foot to enable healing and prevent further injury and possible amputation in future. Konstantin Vasquez MD, PhD.
--- NOTE | 2019-05-08 08:30 | NUR ---
CALLED [employer] TO SEE AVAILABLE SNF IN NETWORK, WAITING ON J LIZZY REP TO RETURN CALL WITH LIST [phone]. PER PT WAS AT [facility] AND WAS NOT HAPPY WITH THAT PLACEMENT, THEY ARE WANTING TO KNOW IF MEDICAL RESORT IS IN NETWORK.
--- NOTE | 2019-05-08 08:58 | NUR ---
[facility] IS NOT IN NETWORK, NOTIFIED DR MARTINEZ, HE STATES THE PT WILL NOT GO TO ANY OTHER FACILITY, HE WILL SPEAK WITH THE PT.
[2019-05-08] MEDS: BACITRACIN ZINC 0.9GM TP SCH ×2 (09:00→17:01)
[2019-05-08] MEDS: SILVER SULFADIAZINE 50GM CREAM TOP SCH ×2 (09:00→17:01)
[2019-05-08] MEDS: METOPROLOL TARTRATE 50 MG TAB PO SCH ×2 (09:02→17:01)
[2019-05-08] MEDS: INSULIN REGULAR, HUMAN 100 UNIT/1 ML 3ML VIAL SQ SCH ×4 (11:36→20:30)
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
[2019-05-08] MEDS: ENOXAPARIN SOD INJ 40 MG/0.4 ML SYR SC SCH (16:59)
--- NOTE | 2019-05-08 17:45 | NUR ---
dialysis complete with 2000ml removed. patient tolerated well. vitals stable with no distress. Addendum: 05/08/19 at 1747 by Liam Stokes RN wrong patient
--- NOTE | 2019-05-08 20:16 | NUR ---
Bedside report received from to day nurse. Patient resting in bed, no s/s of distress or c/o pain at this time. All safety measures in place, patient continues to refuse bed in lowest position
[2019-05-08] MEDS: ATORVASTATIN 40 MG TAB PO SCH (20:52)
[2019-05-08] MEDS: INSULIN GLARGINE 100 UNITS/ML VIAL SC SCH (21:00)
[2019-05-09] VITALS (9 sets, daily range): BP systolic 116–131; BP diastolic 67–90
--- NOTE | 2019-05-09 02:45 | NUR ---
D/C summary Principal Dx: Right foot injury- LWC; wound consult/Podiatry. Left BKA- well healed; has prosthesis. Ambulatory dysfunction with left BKA- PT eval SEcondary Dx: DM2- hab1c/lipids/ADA diet; insulin HTN- cont BB HLD- statin Prop: lovenox dispo; 05-05 Hba1c/LDL 9.8/109; Right foot 1st metatarsal fracture; 05/06 cont care; cont IV abx and LWC. 05/07 check labs; d/c planning; Non-weight bearing on right foot. 05-08 Boot requested is ready for use at home; will attempt to place at SNF of pt's choice, since critical to keep pt off right foot to enable healing and prevent further injury and possible amputation in future. d/c home with HH/PT stable d/c>35mins f/u pcp 2-4 days; f/u with 1 week Konstantin Vasquez MD, PhD.
[2019-05-09] MEDS: PIPER-TAZ 3.375 GM 50 ML IV SCH ×3 (06:00→21:33)
[2019-05-09] MEDS: INSULIN REGULAR, HUMAN 100 UNIT/1 ML 3ML VIAL SQ SCH ×4 (07:30→21:00)
--- NOTE | 2019-05-09 07:30 | NUR ---
PT UP IN BED NO DISTRESS NOTED,DENIES PAIN.
[2019-05-09] MEDS: METOPROLOL TARTRATE 50 MG TAB PO SCH ×2 (09:00→17:20)
--- NOTE | 2019-05-09 11:58 | NUR ---
HOME HEALTH DISCHARGE NOTE PATIENT ADDRESS WHERE SERVICE WILL BE RECEIVED: [address] [place] [place] [address] PATIENT CONTACT NUMBER: [phone] NAME OF HOME HEALTH COMPANY: [employer] TELEPHONE/FAX NUMBER OF COMPANY: OFF: [phone] / FAX: [id number] ADDRESS OF COMPANY: [id number] [place] [address] SERVICES TO RECEIVE: SKILLED NURSE FOR WOUND CARE ANTICIPATED DATE SERVICES WILL BEGIN: 05/10/2019 Please call the company above if you have not received a call to schedule a home visit within 24 hours of discharge. JUAN called and spoke with Hasmukh in office. He states they have insurance approval and they do not need any additional clinicals. Will have pharmacy scheduler put pt down to be seen tomorrow. HH information was printed and given to pt.
--- NOTE | 2019-05-09 12:00 | NUR ---
PT CONCERNED ABOUT GOING HOME DURE TO NO ONE AT HOME AND NOT ABLE TO PUT WEIGHT ON FOOT,SPOKE WITH DR MARTINEZ HOLD DISCHARGE TILL TOMORROWAND AND HAVE PT EVAL FOR TRANSFER
[2019-05-09] MEDS: BACITRACIN ZINC 0.9GM TP SCH ×2 (13:21→17:20)
[2019-05-09] MEDS: SILVER SULFADIAZINE 50GM CREAM TOP SCH ×2 (13:35→17:20)
--- NOTE | 2019-05-09 14:49 | NUR ---
CALLED BY NURSE FERNANDA STATING PT IS CONCERNED ABOUT GOING HOME ALONE AND NWB TO FOOT WITH FX AND BOOT ASKED FERNANDA TO GET A PT EVAL FOR HOME SAFETY AND SAFE TRANFERS PRIOR TO DISCHARGE FERNANDA CALLING DR MARTINEZ HOME HEALTH IS ALREADY SET UP AND SCHEDULED TO COME OUT FOR WOUND CARE 05/10
--- NOTE | 2019-05-09 16:30 | NUR ---
PT HERE TEACHING PT HOW TO TRANSFER FOR NON WEIGHT BEARING.TOLERATED WELL
[2019-05-09] MEDS: ENOXAPARIN SOD INJ 40 MG/0.4 ML SYR SC SCH (17:00)
--- NOTE | 2019-05-09 17:03 | NUR ---
Patient will benefit from home safety eval by a home health PT and for DELONTE and KENA ex to make transfers safer. Addendum: 05/10/19 at 0106 by Prabhu Vanessa PT Amended: Links added.
--- NOTE | 2019-05-09 17:24 | NUR ---
PT UP ON SIDE OF BED ,DENIES PAIN.
--- NOTE | 2019-05-09 19:56 | NUR ---
Received change of shift report from AM nurse. Walking rounds completed.
[2019-05-09] MEDS: ATORVASTATIN 40 MG TAB PO SCH (20:36)
[2019-05-09] MEDS: INSULIN GLARGINE 100 UNITS/ML VIAL SC SCH (21:00)
--- NOTE | 2019-05-09 22:10 | Progress Note ---
DATE: 05/09/2019 SUBJECTIVE: The patient at bedside, doing somewhat better. There is still some swelling to the right lower extremity. OBJECTIVE: VITAL SIGNS: Afebrile. Vital signs stable. Moderate amount of swelling noted to right foot. Lesions healing slowly to the right lower extremity. ASSESSMENT: Fracture, first metatarsal with partial dorsal displacement, diabetic neuropathy, and multiple grade 2 lesions. PLAN: Continue local wound care. The patient will be shown how to transfer with walker or a knee walker with minimal weight to his right lower extremity to prevent any further displacement, which may end up needing open reduction and internal fixation, which will not be a good thing due to the fact that the patient only has one leg. The patient will be seen tomorrow. If he is doing okay, will be discharged. UNRULY Dugan/VITALIY /[id number]
[2019-05-10] VITALS: BP 123/83
[2019-05-10 04:00] VITALS: BP 120/63
[2019-05-10] MEDS: PIPER-TAZ 3.375 GM 50 ML IV SCH (05:09)
--- NOTE | 2019-05-10 05:37 | NUR ---
Patient resting quitly at this time.
[2019-05-10 07:30] VITALS: BP 120/63
--- NOTE | 2019-05-10 07:30 | NUR ---
pt in bed sleeping,no s/s discomfort.
[2019-05-10 08:00] VITALS: BP 125/79
--- NOTE | 2019-05-10 08:00 | NUR ---
DR MARTINEZ HERE OK TO DISCHARGE HOME AFTER SEEING DR ARELLANO
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

 05/06 cont care; cont IV abx and LWC. 05/07 check labs; d/c planning; Non-weight bearing on right foot. 05-08 Boot requested is ready for use at home; will attempt to place at SNF of pt's choice, since critical to keep pt off right foot to enable healing and prevent further injury and possible amputation in future. 05-09-19 Turns out that pt had not rec'd any training in safe transfers- therefore keep in hospital for training; 2-2 cont transfer training; went well; possible d/c later today; check labs Konstantin Vasquez MD, PhD.
[2019-05-10] MEDS: INSULIN REGULAR, HUMAN 100 UNIT/1 ML 3ML VIAL SQ SCH ×2 (08:44→11:30)
[2019-05-10] MEDS: METOPROLOL TARTRATE 50 MG TAB PO SCH (08:45)
[2019-05-10 09:18] LABS: BASOPHILS # (AUTO) 0.1 (0.0-0.1); BASOPHILS % 0.7 % (0.0-1.0); EOSINOPHILS # (AUTO) 0.2 (0.0-0.4); EOSINOPHILS % 2.8 % (0.0-6.0); HEMATOCRIT 37.4 % (38.2-49.6); HEMOGLOBIN 12.7 g/dL (14.0-18.0); LYMPHOCYTES # (AUTO) 2.3 (1.0-3.2); LYMPHOCYTES % 33.7 % (18.0-39.1); MEAN CORPUSCULAR HEMOGLOBIN 27.4 pg (28-32); MEAN CORPUSCULAR VOLUME 80.6 fL (81-99); MONOCYTES # (AUTO) 0.5 (0.2-0.8); MONOCYTES % 7.6 % (4.4-11.3); NEUTROPHILS # (AUTO) 3.8 (2.1-6.9); NEUTROPHILS % 54.9 % (38.7-80.0); PLATELET COUNT 320 x10e3/uL (140-360); RED BLOOD COUNT 4.64 x10e6/uL (4.3-5.7); RED CELL DISTRIBUTION WIDTH 12.4 % (11.7-14.4)
[2019-05-10 09:40] LABS: ANION GAP 13.6 mmol/L (8-16); BLOOD UREA NITROGEN 11 mg/dL (7-26); BUN/CREATININE RATIO 12 (6-25); CALCIUM 9.6 mg/dL (8.4-10.2); CARBON DIOXIDE 25 mmol/L (22-29); CHLORIDE 103 mmol/L (98-107); CREATININE, SERUM 0.93 mg/dL (0.72-1.25); EST GLOMERULAR FILTRATION RATE > 60 ML/MIN (60-); GLUCOSE 209 mg/dL (74-118); POTASSIUM 4.6 mmol/L (3.5-5.1); SODIUM 137 mmol/L (136-145)
--- NOTE | 2019-05-10 11:30 | NUR ---
Patient to DC today, gave home health info to Aide [facility] so patient can be instructed to call Saturday when he is home for a wound care visit. Patient to get wound care today.
[2019-05-10 12:00] VITALS: BP 119/65
--- NOTE | 2019-05-10 22:19 | Progress Note ---
DATE: 05/10/2019 SUBJECTIVE: The patient is seen at bedside, accompanied by nurse. The patient feels comfortable transferring from his wheelchair into his bed with the aid of a walker with the offloading surgical shoe. OBJECTIVE: VITAL SIGNS: Afebrile, pulse rate 69, respirations 20, blood pressure 119/65, and O2 saturation 95%. LABORATORY DATA: Labs show white blood cell count of 6.8, hemoglobin 12.7. Lesions to the right lower extremity improving. Has some granulation tissue. Positive drainage and negative foul smell. Some superficial necrosis also noted to the dorsal aspect of the 2nd, 3rd, and 4th digits right foot. ASSESSMENT: Fractured 1st metatarsal with multiple grade 2 lesion on dorsal aspect of right foot with diabetic neuropathy and edema. PLAN: The patient instructed to limit his weightbearing to a minimum, only transfer from his chair, bed, and bathroom with the aid of a walker with the offloading shoe. The patient will be seen in approximately one week in the office. Continue the prescribed medications to affected area. Proper diabetic management. Okay to be discharged secondary to the patient able to transfer with his minimal weight as he can to the right lower extremity. UNRULY Dugan/VITALIY /[id number]
== END 2019-05-10 15:00 | disposition home or self-care (01) | DRG 563 ==
LOC: ER 17:57 → ERHOLD 20:04 → MED/SURG 20:50 → MED/SURG3 05-04 12:31 → OBSVTOIN 05-05 09:15
PROVIDERS: ADMIT Internal Medicine; ATTEND Internal Medicine
DX: S92.311A Displaced fracture of first metatarsal bone, right foot, initial encounter for closed fracture (principal); T31.40 Burns involving 40-49% of body surface with 0% to 9% third degree burns; L03.116 Cellulitis of left lower limb; E11.21 Type 2 diabetes mellitus with diabetic nephropathy; I10 Essential (primary) hypertension; E78.5 Hyperlipidemia, unspecified; X11.8XXA Contact with other hot tap-water, initial encounter; T25.221A Burn of second degree of right foot, initial encounter
CPT/HCPCS: 36415; 80048; 80053; 80061; 81001; 82948; 83036; 83735; 85025; 87040; 96372; 99284; G0378; J1650; J1815; J1817; J2543; J3370; J7050